=== PATIENT | male | born 1975 | race Two or more races ===

== ENCOUNTER → 2022-11-06 07:40 | Outpatient (BNVA) | payer SELFPAY | DX: Z02.79 Encounter for issue of other medical certificate (principal) ==

== ENCOUNTER → 2022-12-02 11:21 | Outpatient (BNVA) | payer OTHER, SELFPAY | PROVIDERS: Visit Provider Physician Assistant Medical | DX: Z77.098 Contact with and (suspected) exposure to other hazardous, chiefly nonmedicinal, chemicals (principal) | CPT/HCPCS: 99203 ==

== ENCOUNTER → 2022-12-08 10:04 | Outpatient (BNVA) | payer OTHER, SELFPAY | PROVIDERS: Visit Provider Physician Assistant Medical | DX: T59.891A Toxic effect of other specified gases, fumes and vapors, accidental (unintentional), initial encounter (principal); J68.4 Chronic respiratory conditions due to chemicals, gases, fumes and vapors; Y92.9 Unspecified place or not applicable | CPT/HCPCS: 99214 ==

== ENCOUNTER → 2023-01-08 13:10 | Outpatient (BNVA) | payer OTHER, SELFPAY | PROVIDERS: Visit Provider Physician Assistant Medical | DX: Z77.098 Contact with and (suspected) exposure to other hazardous, chiefly nonmedicinal, chemicals (principal) | CPT/HCPCS: 99213 ==

== ENCOUNTER → 2024-01-07 09:21 | Outpatient (BNVA) | payer OTHER, SELFPAY | PROVIDERS: Visit Provider Physician Assistant Medical | DX: S80.812A Abrasion, left lower leg, initial encounter (principal); S46.911A Strain of unspecified muscle, fascia and tendon at shoulder and upper arm level, right arm, initial encounter; W11.XXXA Fall on and from ladder, initial encounter | CPT/HCPCS: 99202 ==

== ENCOUNTER 2024-01-07 10:40 | Observation (INO) | payer OTHER, SELFPAY ==
[2024-01-07] VITALS (9 sets, daily range): BP systolic 112–135; BP diastolic 6–87; PULSE 57–80; RESP 15–20; TEMP 36.6–37.1; O2SAT 90–98; BMI 31.6
--- NOTE | ~2024-01-07 | XR_ITS ---
EXAMINATION: XR SHOULDER, RIGHT CLINICAL INFORMATION: Pain with injury COMPARISON: None available. TECHNIQUE: Three views of the right shoulder. FINDINGS: The bones and soft tissues are normal. No fracture. Glenohumeral and acromioclavicular alignment is anatomic with normal joint space. No abnormal soft tissue calcifications. XR/XR shoulder RT min 2V IMPRESSION: Normal right shoulder. Electronically signed by: Avni Verduzco MD 01/07/2024 02:00 PM EDT
--- NOTE | ~2024-01-07 | CT_ITS ---
EXAMINATION: CT LOWER EXTREMITY WITH CONTRAST, LEFT CLINICAL INFORMATION: Pain. Question compartment syndrome. COMPARISON: Left tibia and fibula radiographs done earlier the same day. TECHNIQUE: Contiguous axial CT images of the left lower extremity were obtained following the IV administration of 85 mL Omnipaque 350 contrast. Sagittal and coronal reformats were provided and reviewed. This CT examination was performed using dose optimization techniques as appropriate, variously including the following: *Automated exposure control *Adjustment of mA and/or kV according to patient size (this includes techniques or standardized protocols for targeted exams where dose is matched to indication/reason for exam; i.e. extremities or head) *Use of iterative reconstruction technique. DOSE: 269 mGy-cm FINDINGS: No acute fracture or dislocation. No joint space narrowing or marginal osteophytes. No concerning lytic or blastic osseous lesion. No talar osteochondral lesion. The ankle mortise is maintained. Along the anteromedial aspect of the proximal tibial diametaphysis there is a hyperdense, somewhat irregular complex fluid collection measuring approximately 3.3 x 4.9 x 8.4 cm, consistent with a hematoma. Adjacent soft tissue stranding extending both proximally and distally. No additional organized fluid collection. No peripherally enhancing fluid collection. The visualized vascular structures are patent and grossly unremarkable. No enhancing soft tissue mass. The visualized muscles and tendons are grossly intact, however, evaluation is limited on CT examination. CT/CT lower leg LT w IV con IMPRESSION: 1. Hyperdense, somewhat irregular fluid collection along the anteromedial aspect of the proximal tibial diametaphysis measuring up to 8.4 cm, consistent with a hematoma. Adjacent soft tissue stranding both proximally and distally. No additional organized fluid collection or abscess formation. 2. No acute osseous abnormality. Electronically signed by: Logan Thompson MD 01/07/2024 04:20 PM EDT
--- NOTE | ~2024-01-07 | CT_ITS ---
EXAM: Contrast-enhanced CT scan of the chest, abdomen, and pelvis. INDICATION: Fall with pain. COMPARISON: CT abdomen and pelvis June 07, 2009 TECHNIQUE: Multidetector helical imaging of the chest, abdomen, and pelvis was obtained from the thoracic inlet through the pubic symphysis following administration of 85 cc of Omnipaque 350 IV contrast. Coronal and sagittal reformatted images that were obtained were also reviewed. This CT examination was performed using dose optimization techniques as appropriate, variously including the following: *Automated exposure control *Adjustment of mA and/or kV according to patient size (this includes techniques or standardized protocols for targeted exams where dose is matched to indication/reason for exam; i.e. extremities or head) *Use of iterative reconstruction technique DLP: 987 mGy-cm FINDINGS: CHEST: Central airways are patent. Lungs are adequately aerated. There is mild dependent atelectasis present. There is no lobar consolidation. No pleural effusion or pneumothorax. No suspicious pulmonary nodules. The heart is normal in size. There is no pericardial effusion. No appreciable coronary artery calcifications. Normal caliber thoracic aorta. No gross mediastinal or hilar lymphadenopathy. No pathologically enlarged axillary lymph nodes. ABDOMEN/PELVIS: The liver is normal in size. There are numerous subcentimeter hypodense foci throughout the liver which are too small to accurately characterize but statistically tiny cysts. The gallbladder is normal in appearance. The pancreas, spleen and adrenal glands are unremarkable. Symmetrically enhancing kidneys without hydronephrosis. A few subcentimeter hypodense foci within the right kidney are too small to accurately characterize. Normal caliber loops of small and large bowel. Normal appendix. Normal caliber abdominal aorta demonstrating mild atherosclerotic disease. No retroperitoneal lymphadenopathy. The bladder is normal in appearance. The prostate gland is normal in size. No gross pelvic fluid. No inguinal lymphadenopathy. OSSEOUS STRUCTURES Minimal diffuse degenerative changes of the spine. CT/CT abdomen pelvis w IV con IMPRESSION: No CT evidence for acute abnormality within the chest, abdomen or pelvis. Electronically signed by: Jonah Nuñez MD 01/07/2024 03:00 PM EDT
--- NOTE | ~2024-01-07 | CT_ITS ---
EXAMINATION: CT HEAD WITHOUT CONTRAST CT CERVICAL SPINE WITHOUT CONTRAST CLINICAL INFORMATION: Fall 10-15 feet. Pain. COMPARISON: None available. TECHNIQUE: Contiguous axial imaging was performed from the skull base to vertex without intravenous administration of contrast. Contiguous axial imaging was performed from the upper chest through the skull base without intravenous administration of contrast. Coronal and sagittal reformats were obtained at the acquisition workstation. This CT examination was performed using dose optimization techniques as appropriate, variously including the following: *Automated exposure control. *Adjustment of mA and/or kV according to patient size (this includes techniques or standardized protocols for targeted exams where dose is matched to indication/reason for exam; i.e. extremities or head). *Use of iterative reconstruction technique. DLP: 1250 mGy-cm FINDINGS: Head: There is no evidence of acute intracranial hemorrhage or edematous territorial infarction. Owen-white matter differentiation is preserved. There is no abnormal attenuation within the brain parenchyma. The ventricles are normal in morphology and size. No evidence for obstructive hydrocephalus. No abnormal mass effect or midline shift. No extra-axial fluid collections. No acute soft tissue or osseous abnormalities. Mild mucosal thickening of the paranasal sinuses. The mastoid air cells and middle ear cavities are clear. Cervical Spine: The atlantooccipital and atlantoaxial articulations remain well aligned. Straightening of the normal cervical lordosis. Otherwise, there is anatomic alignment of the vertebral bodies and posterior elements. Congenital nonunion of the posterior arch of C1. No evidence of acute fracture or subluxation. The vertebral body heights are maintained. Moderate degenerative disc disease from C4-C6. Mild degenerative disc disease at all additional levels. Facet and uncovertebral joint arthropathy leads to osseous encroachment on the neural foramina from C3-C6. There is no prevertebral soft tissue swelling. The thyroid gland and remaining cervical soft tissues are within normal limits. The lung apices demonstrate no abnormalities. CT/CT cervical spine wo IV con IMPRESSION: 1. No evidence of acute intracranial hemorrhage or edematous territorial infarction. 2. No evidence of acute fracture or traumatic subluxation of the cervical spine. 3. Moderate multilevel degenerative spondyloarthropathy of the cervical spine. Electronically signed by: Petey Marcus DO 01/07/2024 02:51 PM EDT
--- NOTE | ~2024-01-07 | XR_ITS ---
EXAMINATION: XR SHOULDER, RIGHT CLINICAL INFORMATION: Pain with injury COMPARISON: None available. TECHNIQUE: Three views of the right shoulder. FINDINGS: The bones and soft tissues are normal. No fracture. Glenohumeral and acromioclavicular alignment is anatomic with normal joint space. No abnormal soft tissue calcifications. XR/XR tibia fibula LT 2V IMPRESSION: Normal right shoulder. Electronically signed by: Avni Verduzco MD 01/07/2024 02:00 PM EDT
--- NOTE | 2024-01-07 11:11 | ECG_ITS ---
Test Reason : chest pain, trauma Blood Pressure : / mmHG Vent. Rate : 064 BPM Atrial Rate : 064 BPM P-R Int : 136 ms QRS Dur : 084 ms QT Int : 406 ms P-R-T Axes : 053 012 004 degrees QTc Int : 418 ms Normal sinus rhythm Normal ECG When compared with ECG of 09-JUN-2007 11:31, No significant change was found Referred By: Candie Bedoya Electronically Signed By:BARRINGTON CHRISTENSEN
--- NOTE | 2024-01-07 11:13 | ED_ITS ---
HPI - General Adult General Chief complaint: Fall Stated complaint: l leg/chest/r shoulder inj- fell 15 ft Time Seen by Provider: 01/07/24 11:07 Source: patient Mode of arrival: ambulatory Limitations: no limitations History of Present Illness ED Provider: Candie Bedoya PA-C HPI narrative: Patient is a 48 year old assigned male at with no reported medical history presenting to the emergency department today with left lower leg and chest pain after a fall. Patient states that he was working on an HVAC unit on a roof at 0530 when he slipped on some ice and fell. Patient states that he fell at least 10 feet and maybe up to 15 feet. Patient states that he bumped the front portion of his left lower leg and that is where he is having the most pain. Patient states that he is also having some right shoulder pain. Patient denies any dizziness, lightheadedness, abdominal pain, nausea, vomiting, fever, chills, blurry vision, double vision, loss of vision, difficulty breathing, shortness of breath, back pain, night sweats, pain with urination, increased urinary frequency, increased urinary urgency, blood in his urine or stool, syncope or a near syncopal episode, bowel incontinence, bladder incontinence, or any other complaints at this time. Onset (ago): hour(s) Location: chest, left and lower extremity Relieving factors: none Exacerbating factors: none Associated symptoms: chest pain Treatments prior to arrival: none Related Data Allergies Allergy/AdvReac Type Severity Reaction Status Date / Time No Known Allergies Allergy Verified 01/07/24 10:56 Review of Systems 2 Constitutional: Constitutional: Reports no additional constitutional complaints, Denies chills, Denies fever(s) and Denies night sweats Eyes: Eyes: Reports no additional eye complaints, Denies blurry vision, Denies change in vision, Denies diplopia, Denies eye discharge, Denies loss of vision and Denies eye pain ENT: Denies dizziness Cardiovascular: Cardiovascular: Reports no additional cardiovascular complaints, Reports chest pain, Denies lightheadedness, Denies Loss of Consciousness and Denies dyspnea Respiratory: Respiratory: Reports no additional respiratory complaints and Denies dyspnea Gastrointestinal: Gastrointestinal: Reports no additional gastrointestinal complaints, Denies abdominal pain, Denies melena, Denies hematochezia, Denies change in bowel habits and Denies change in stool character Genitourinary: Genitourinary: Reports no additional male genitourinary complaints, Denies hematuria, Denies oliguria, Denies difficulty urinating, Denies dysuria, Denies urinary frequency, Denies urinary hesitancy, Denies urinary incontinence and Denies urinary urgency Musculoskeletal: Musculoskeletal: Reports no additional musculoskeletal complaints, Denies numbness and Denies tingling Comments: left lower leg pain right shoulder pain Neurologic: Denies dizziness, Denies loss of vision, Denies numbness and Denies tingling Psychiatric: Psychiatric: Reports no additional psychiatric complaints Endocrine: Endocrine: Reports no additional endocrine complaints Hematologic/Lymphatic: Hematologic/Lymphatic: Reports no additional hematologic/lymphatic complaints Allergic/Immunologic: Allergic/Immunologic: Reports no additional allergic/immunologic complaints PMFSH Past Medical History Attestation statement: The following information was validated with the patient. Source: old records reviewed and nursing notes reviewed Social History Social History Alcohol intake: current Alcohol intake frequency: holidays/special occasions only Smoked in Last 30 Days: No Use of substances other than those prescribed or required for medical reasons: No Advance Directives: No Advance Directives Information Provided: No Do you have a plan to hurt others: No Plan Physical Exam ED Vital Signs: Vital Signs - 24 hr 01/07/24 10:52 01/07/24 12:33 01/07/24 14:09 Temperature 97.9 F 98.7 F 98.7 F Pulse Rate 74 65 72 Respiratory Rate 16 16 16 Blood Pressure 135/87 128/81 126/83 Pulse Oximetry 98 98 97 Oxygen Delivery Method Room Air Room Air Room Air 01/07/24 15:58 01/07/24 16:00 Temperature 98.4 F Pulse Rate 80 Respiratory Rate 18 Blood Pressure 114/74 Pulse Oximetry 90 L 95 Oxygen Delivery Method Room Air Room Air BMI result Body Mass Index 31.6 Const General: cooperative, no acute distress, alert and awake Nutritional Appearance: well nourished Orientation/consciousness: patient oriented x3 Limitations: no limitations HENMT Head: Yes normal to inspection and Yes atraumatic Ears: hearing grossly normal bilaterally and external ears normal General nose exam: Normal external nose present, no nasal discharge noted and no epistaxis Face and sinus: Yes normal facial exam, No abrasion and No laceration Mouth: Normal oral and palatal mucosa present, no drooling and no muffled voice Eyes General: appearance normal, both eyes and all related structures Periorbital: periorbital findings normal Eyelids: Yes eyelids normal Conjunctivae: conjunctivae normal Pupils: Equal, round and reactive pupils present EOM: EOMs intact bilaterally Neck Neck: Yes normal visual inspection, Yes full ROM and Yes no lymphadenopathy Chest Chest palpation & inspection: normal inspection of the chest Resp Effort & Inspection: normal respiratory effort and able to speak in complete sentences GI Inspection: Yes normal to inspection Neuro General: patient oriented x3 and moves all extremities Cranial nerves: Yes Equal, round and reactive pupils present Cognition (Neuro): normal cognition Extrem Other: patient's left lower leg had some bruising present and pain with palpation to the posterior calf General: Yes full ROM and Yes capillary refill normal Upper/lower leg/hip images: 2 1. abrasion - no open areas or active bleeding Psych Appearance: grossly normal Mental Status: mental status grossly normal Affect: normal affect Attitude: cooperative Thought process: Normal thought process present Thought content: Normal thought content present Insight: Good insight present (Psych) Medications Administered Discontinued Medications Generic Name Dose Route Start Last Admin Trade Name Sreeq PRN Reason Stop Dose Admin Hydromorphone HCl 1 mg 01/07/24 13:59 01/07/24 14:04 Hydromorphone Hcl 1 Mg/Ml Syringe IVPUSH 01/07/24 14:00 1 mg ONCE ONE Administration Protocol Hydromorphone HCl 1.5 mg 01/07/24 14:59 01/07/24 15:05 Hydromorphone Hcl 2 Mg/Ml Vial IVPUSH 01/07/24 15:00 1.5 mg ONCE ONE Administration Protocol Iohexol 100 ml 01/07/24 12:16 01/07/24 12:17 Iohexol 350 Mg/Ml 100 Ml Infus..Btl IV 01/07/24 12:17 85 ml ONCE ONE Administration Iohexol 85 ml 01/07/24 14:49 01/07/24 14:49 Iohexol 350 Mg/Ml 75 Ml Infus..Btl IV 01/07/24 14:50 85 ml ONCE ONE Administration Morphine Sulfate 4 mg 01/07/24 13:08 01/07/24 13:13 Morphine Sulfate 4 Mg/Ml Cartridge IVPUSH 01/07/24 13:09 4 mg ONCE ONE Administration Protocol Ondansetron HCl 4 mg 01/07/24 13:08 01/07/24 13:13 Ondansetron Hcl 4 Mg/2 Ml Vial IVPUSH 01/07/24 13:09 4 mg ONCE ONE Administration Medical Decision Making Medical Decision Making [facility] Narrative: Patient is a 48 year old assigned male at with no reported medical history presenting to the emergency department today with left lower leg pain and chest pain after a fall. Patient's physical exam was as noted in the physical exam portion of this note. Patient's blood work was unremarkable. Patient's EKG was unremarkable. Patient's right shoulder and left tib-fib x-rays showed no acute process. Patient's CT head, c-spine, chest, and abdomen/pelvis showed no acute process. While the patient was in the department he began to experience worsening left lower leg pain and swelling. Upon re-evaluation the patient's left lower leg was more firm than previously with increased pain upon palpation, concerning for possible compartment syndrome. I consulted with my attending physician Dr. Rogers who recommended getting a CTA of the left lower leg and contacting vascular surgery. Dr. Berry with vascular surgery came and examined the patient. He recommended medical admission for continued observation and pain control. CTA of the left lower leg showed an 8.4cm fluid collection to the anteromedial aspect of the proximal tib consistent with a hematoma. Patient's left lower leg was elevated and wrapped in an JAYLEN wrap. I spoke with the hospitalist team who agreed to admission. I explained my physical exam findings as well as all test results to the patient. I answered all questions asked by the patient. Patient received multiple doses of IV pain medication which, upon re-evaluation, he stated it helped his symptoms some. Patient verbalized agreement and understanding with this treatment plan and admission. Differential Diagnosis Differential Diagnoses: The differential diagnosis associated with the presentation includes Fall Compartment syndrome Sternal fracture Tibia fracture Fibular fracture Admission/Observation Consideration of admission/observation: Escalation of care including admission/observation considered Patient admitted. Consult Healthcare Provider Management of the patient was discussed with: Hospitalist (agreed to admission as noted in the MDM Rationale portion of this note.) and Estimator Project Manager (spoke to the vascular surgeon as noted in the MDM Rationale portion of this note.) Lab Data [facility] Lab Attestation statement: I reviewed the patient's lab results. My interpretation of these results are in the MDM Rationale portion of this note. 01/07/24 11:34 01/07/24 11:34 Labs: Lab Results 01/07/24 Range/Units 11:34 WBC 11.4 H (4.8-10.8) X10*3/uL RBC 4.52 L (4.60-5.80) X10*6/uL Hgb 14.0 (14.0-18.0) g/dl Hct 41.9 L (42.0-52.0) % MCV 92.7 (80.0-98.0) fL MCH 31.0 (27.0-33.0) pg MCHC 33.4 (31.0-36.0) g/dl RDW 12.1 (11.0-16.0) % Plt Count 262 (160-400) X10*3/uL MPV 9.0 L (9.4-12.4) fL Immature Gran % (Auto) 0.4 (0.0-0.4) % Neut % (Auto) 77.7 H (45-73) % Lymph % (Auto) 15.2 L (20-40) % Aurora % (Auto) 5.9 (2-11) % Eos % (Auto) 0.5 (0-4) % Baso % (Auto) 0.3 (0-2) % Lymph # (Auto) 1.7 (1.2-4.9) X10*3/uL Aurora # (Auto) 0.7 (0.1-1.2) X10*3/uL Eos # (Auto) 0.1 (0.0-0.4) X10*3/uL Baso # (Auto) 0.0 (0.0-0.2) X10*3/uL Abs Immat Gran (auto) 0.05 H (0.00-0.03) X10*3/uL Absolute Neuts (auto) 8.8 H (2.0-8.3) x10*3/uL Absolute Nucleated RBC 0.000 (0.0-0.012) X10*3/uL Nucleated RBC % (auto) 0.0 (0.0-0.2) /100WBC PT 10.8 L (10.9-12.4) SEC INR 0.9 (0.9-1.1) APTT 30.6 (26.0-36.8) SEC Sodium 138 (135-145) mmol/L Potassium 4.9 (3.3-5.1) mmol/L Chloride 105 (96-108) mmol/L Carbon Dioxide 26 (22-29) mmol/L Anion Gap 12 (12-20) BUN 11 (9-16) mg/dL Creatinine 0.88 (0.5-1.4) mg/dL Estim Creat Clear Calc 103.6 Estimated GFR > 60 Random Glucose 112 (60-115) mg/dL Calcium 9.4 (8.4-10.2) mg/dL Magnesium 2.0 (1.6-2.6) mg/dL Total Bilirubin 0.5 (0.0-1.0) mg/dL AST 23 (5-37) U/L ALT 25 (0-40) U/L Alkaline Phosphatase 71 (39-117) U/L Total Creatine Kinase 376 H (38-174) U/L Troponin I High Sens < 2.7 (<3.5-35.0) ng/L Total Protein 7.4 (6.5-8.0) g/dL Albumin 4.2 (3.5-5.0) g/dL Independent Interpretation I performed an independent interpretation of an: EKG, Plain X-Ray and CT Scan Interpretation: My interpretation is in agreement with the radiologist's impression of these imaging studies. L EXAM: Contrast-enhanced CT scan of the chest, abdomen, and pelvis. INDICATION: Fall with pain. COMPARISON: CT abdomen and pelvis June 07, 2009 TECHNIQUE: Multidetector helical imaging of the chest, abdomen, and pelvis was obtained from the thoracic inlet through the pubic symphysis following administration of 85 cc of Omnipaque 350 IV contrast. Coronal and sagittal reformatted images that were obtained were also reviewed. This CT examination was performed using dose optimization techniques as appropriate, variously including the following: *Automated exposure control *Adjustment of mA and/or kV according to patient size (this includes techniques or standardized protocols for targeted exams where dose is matched to indication/reason for exam; i.e. extremities or head) *Use of iterative reconstruction technique DLP: 987 mGy-cm FINDINGS: CHEST: Central airways are patent. Lungs are adequately aerated. There is mild dependent atelectasis present. There is no lobar consolidation. No pleural effusion or pneumothorax. No suspicious pulmonary nodules. The heart is normal in size. There is no pericardial effusion. No appreciable coronary artery calcifications. Normal caliber thoracic aorta. No gross mediastinal or hilar lymphadenopathy. No pathologically enlarged axillary lymph nodes. ABDOMEN/PELVIS: The liver is normal in size. There are numerous subcentimeter hypodense foci throughout the liver which are too small to accurately characterize but statistically tiny cysts. The gallbladder is normal in appearance. The pancreas, spleen and adrenal glands are unremarkable. Symmetrically enhancing kidneys without hydronephrosis. A few subcentimeter hypodense foci within the right kidney are too small to accurately characterize. Normal caliber loops of small and large bowel. Normal appendix. Normal caliber abdominal aorta demonstrating mild atherosclerotic disease. No retroperitoneal lymphadenopathy. The bladder is normal in appearance. The prostate gland is normal in size. No gross pelvic fluid. No inguinal lymphadenopathy. OSSEOUS STRUCTURES Minimal diffuse degenerative changes of the spine. CT/CT chest w IV con IMPRESSION: No CT evidence for acute abnormality within the chest, abdomen or pelvis. Electronically signed by: Jonah Nuñez MD 01/07/2024 03:00 PM EDT Dictated By: Jonah Nuñez MD Signed By: Electronically signed by Jonah Nuñez MD 01/07/24 1500 EXAMINATION: CT HEAD WITHOUT CONTRAST CT CERVICAL SPINE WITHOUT CONTRAST CLINICAL INFORMATION: Fall 10-15 feet. Pain. COMPARISON: None available. TECHNIQUE: Contiguous axial imaging was performed from the skull base to vertex without intravenous administration of contrast. Contiguous axial imaging was performed from the upper chest through the skull base without intravenous administration of contrast. Coronal and sagittal reformats were obtained at the acquisition workstation. This CT examination was performed using dose optimization techniques as appropriate, variously including the following: *Automated exposure control. *Adjustment of mA and/or kV according to patient size (this includes techniques or standardized protocols for targeted exams where dose is matched to indication/reason for exam; i.e. extremities or head). *Use of iterative reconstruction technique. DLP: 1250 mGy-cm FINDINGS: Head: There is no evidence of acute intracranial hemorrhage or edematous territorial infarction. Owen-white matter differentiation is preserved. There is no abnormal attenuation within the brain parenchyma. The ventricles are normal in morphology and size. No evidence for obstructive hydrocephalus. No abnormal mass effect or midline shift. No extra-axial fluid collections. No acute soft tissue or osseous abnormalities. Mild mucosal thickening of the paranasal sinuses. The mastoid air cells and middle ear cavities are clear. Cervical Spine: The atlantooccipital and atlantoaxial articulations remain well aligned. Straightening of the normal cervical lordosis. Otherwise, there is anatomic alignment of the vertebral bodies and posterior elements. Congenital nonunion of the posterior arch of C1. No evidence of acute fracture or subluxation. The vertebral body heights are maintained. Moderate degenerative disc disease from C4-C6. Mild degenerative disc disease at all additional levels. Facet and uncovertebral joint arthropathy leads to osseous encroachment on the neural foramina from C3-C6. There is no prevertebral soft tissue swelling. The thyroid gland and remaining cervical soft tissues are within normal limits. The lung apices demonstrate no abnormalities. CT/CT head/brain wo IV con IMPRESSION: 1. No evidence of acute intracranial hemorrhage or edematous territorial infarction. 2. No evidence of acute fracture or traumatic subluxation of the cervical spine. 3. Moderate multilevel degenerative spondyloarthropathy of the cervical spine. Electronically signed by: Petey Marcus DO 01/07/2024 02:51 PM EDT Dictated By: Nic Marcus DO Signed By: Electronically signed by Nic Marcus DO 01/07/24 1451 EXAMINATIONS: XR SHOULDER, RIGHT XR TIBIA AND FIBULA, LEFT CLINICAL INFORMATION: Pain with injury COMPARISON: None available. TECHNIQUE: Three views of the right shoulder. 2 views of the right tibia and fibula. FINDINGS: The bones and soft tissues are normal. No fracture. Glenohumeral and acromioclavicular alignment is anatomic with normal joint space. No abnormal soft tissue calcifications. The tibia and fibula appear normal. The visualized portions of the ankle and knee joint are unremarkable. IMPRESSION: Normal right shoulder and right tibia and fibula. Electronically signed by: Avni Verduzco MD 01/07/2024 03:12 PM EDT RP EXAMINATION: CT LOWER EXTREMITY WITH CONTRAST, LEFT CLINICAL INFORMATION: Pain. Question compartment syndrome. COMPARISON: Left tibia and fibula radiographs done earlier the same day. TECHNIQUE: Contiguous axial CT images of the left lower extremity were obtained following the IV administration of 85 mL Omnipaque 350 contrast. Sagittal and coronal reformats were provided and reviewed. This CT examination was performed using dose optimization techniques as appropriate, variously including the following: *Automated exposure control *Adjustment of mA and/or kV according to patient size (this includes techniques or standardized protocols for targeted exams where dose is matched to indication/reason for exam; i.e. extremities or head) *Use of iterative reconstruction technique. DOSE: 269 mGy-cm FINDINGS: No acute fracture or dislocation. No joint space narrowing or marginal osteophytes. No concerning lytic or blastic osseous lesion. No talar osteochondral lesion. The ankle mortise is maintained. Along the anteromedial aspect of the proximal tibial diametaphysis there is a hyperdense, somewhat irregular complex fluid collection measuring approximately 3.3 x 4.9 x 8.4 cm, consistent with a hematoma. Adjacent soft tissue stranding extending both proximally and distally. No additional organized fluid collection. No peripherally enhancing fluid collection. The visualized vascular structures are patent and grossly unremarkable. No enhancing soft tissue mass. The visualized muscles and tendons are grossly intact, however, evaluation is limited on CT examination. CT/CT lower leg LT w IV con IMPRESSION: 1. Hyperdense, somewhat irregular fluid collection along the anteromedial aspect of the proximal tibial diametaphysis measuring up to 8.4 cm, consistent with a hematoma. Adjacent soft tissue stranding both proximally and distally. No additional organized fluid collection or abscess formation. 2. No acute osseous abnormality. Electronically signed by: Logan Thompson MD 01/07/2024 04:20 PM EDT RP Dictated By: Logan Thompson MD Signed By: Electronically signed by Logan Thompson MD 01/07/24 1620 Vent. Rate: 064 BPM Atrial Rate: 064 BPM P-R Int: 136 ms QRS Dur: 084 ms QT Int: 406 ms P-R-T Axes: 053 012 004 degrees QTc Int: 418 ms Normal sinus rhythm Normal ECG When compared with ECG of 09-JUN-2007 11:31, No significant change was found Referred By: Candie Bedoya Electronically Signed By:JOSE L CHRISTENSEN Dictated By: Jose L Christensen MD Signed By: Electronically signed by Jose L Christensen MD 01/07/24 7057 Radiology Impression Discussion of test interpretation with radiology: I have reviewed the radiologist's reading. Critical Care Time Critical Care Time Critical Care Time: Yes Total Critical Care Time: 46 Attestation: I spent 46 minutes of Critical Care Time with this patient. This does not include time spent on separately reported billable procedures. Discharge Plan Discharge Clinical Impression: Left leg pain Fall Qualifiers: Encounter type: initial encounter Qualified Code(s): W19.XXXA - Unspecified fall, initial encounter Patient Disposition: Admitted As Inpatient Print Language: English
[2024-01-07 11:37] LABS: MANUAL DIFF FLAG NO
[2024-01-07 11:39] LABS: Basophils Percent Auto 0.3 % (0-2); Eosinophils Absolute Auto 0.1 X10*3/uL (0.0-0.4); Eosinophils Percent Auto 0.5 % (0-4); Hematocrit 41.9 % (42.0-52.0); Imm Gran Abs Auto 0.05 X10*3/uL (0.00-0.03); Imm Gran Pct Auto 0.4 % (0.0-0.4); Lymphocytes Absolute Auto 1.7 X10*3/uL (1.2-4.9); Lymphocytes Percent Auto 15.2 % (20-40); Mean Corpuscular HGB Conc 33.4 g/dl (31.0-36.0); Mean Corpuscular Volume 92.7 fL (80.0-98.0); Monocytes Absolute Auto 0.7 X10*3/uL (0.1-1.2); Monocytes Percent Auto 5.9 % (2-11); Neutrophils Absolute Auto 8.8 x10*3/uL (2.0-8.3); Neutrophils Percent Auto 77.7 % (45-73); Platelet Count 262 X10*3/uL (160-400); Red Blood Count 4.52 X10*6/uL (4.60-5.80); Red Cell Distribution Width 12.1 % (11.0-16.0); White Blood Count 11.4 X10*3/uL (4.8-10.8)
[2024-01-07 11:49] LABS: INTERNATIONAL NORM RATIO 0.9 (0.9-1.1); Prothrombin Time 10.8 SEC (10.9-12.4)
[2024-01-07 11:51] LABS: Partial Thromboplastin Time 30.6 SEC (26.0-36.8)
[2024-01-07 11:54] LABS: Alanine Aminotransferase 25 U/L (0-40); Albumin Level 4.2 g/dL (3.5-5.0); Alkaline Phosphatase 71 U/L (39-117); Anion Gap 12 (12-20); Aspartate Amino Transferase 23 U/L (5-37); Bilirubin Total 0.5 mg/dL (0.0-1.0); Blood Urea Nitrogen 11 mg/dL (9-16); Calcium 9.4 mg/dL (8.4-10.2); Carbon Dioxide 26 mmol/L (22-29); Chloride 105 mmol/L (96-108); Creatinine Clr Calc Pharmacy 103.6; Estimated Glomerular Filt Rate > 60; Glucose Random 112 mg/dL (60-115); Potassium 4.9 mmol/L (3.3-5.1); Sodium 138 mmol/L (135-145); Total Protein 7.4 g/dL (6.5-8.0)
[2024-01-07 12:03] LABS: Troponin-I High Sensitivity < 2.7 ng/L (<3.5-35.0)
[2024-01-07] MEDS: iohexoL 350 MG/ML 100 ML INFUS..BTL IV (12:17)
--- NOTE | 2024-01-07 13:02 | PC.NURSE ---
Patient reports fell 15ft off a roof at 5:30am this morning, reports increasing left leg pain and swelling
[2024-01-07] MEDS: Morphine Sulfate 4 MG/ML CARTRIDGE IVPUSH (13:13)
[2024-01-07] MEDS: ondansetron HCL 4 MG/2 ML VIAL IVPUSH ×2 (13:13→17:12)
--- NOTE | 2024-01-07 13:16 | PC.NURSE ---
Patient reporting increasing left leg pain. Left leg with increased swelling noted. Provider aware and at bedside to assess. Medicated per mar
--- NOTE | 2024-01-07 13:53 | PC.NURSE ---
Patient reports no relief from morphine, PA aware
[2024-01-07] MEDS: HYDROmorphone HCl 1 MG/ML SYRINGE IVPUSH (14:04)
--- NOTE | 2024-01-07 14:08 | PC.NURSE ---
MD at bedside to assess. Patient reports increasing pain, leg leg with continued swelling. Calf firm and cooler to touch than right leg. Positive dorsalis pedis pulse via dopler. Able flex and dorsi flex foot. Kendrick wrap applied, elevated using 4 pillows
--- NOTE | 2024-01-07 14:40 | PC.NURSE ---
Vascular surgery at bedside to assess patient
[2024-01-07] MEDS: iohexoL 350 MG/ML 75 ML INFUS..BTL 85 ML IV (14:49)
--- NOTE | 2024-01-07 14:56 | P.CONGS_ITS ---
<Statement entered by Alan Berry MD - 01/07/24 15:58> I have seen and evaluated the patient and agree with history, findings, assessment and plan documented by Cami Jaimes PA-c. Will need observation for compartment syndrome. We will follow with you History of Present Illness Consult details Consult date: 01/07/24 Narrative: We are consulted on Shant today due to concerns of compartment syndrome of the left lower extremity. The patient presented to the ER approximately 7 hours after falling down a ladder approximately 15 ft around 0530 this morning. He did not hit his head and he did not lose consciousness. He arrived in the ER a couple of hours ago with complaints of left lower leg pain. The leg is extremely swollen and painful to palpation. There is a hematoma noted just below the tibial tuberosity medially appx [id number]. There is a small laceration over the tibia, minimal bleeding noted. The compartment is hard over the medially aspect, which is the most painful, according to the pt. He states he slid down the ladder and through 1 of the rungs and fell onto his back. He does not recall exactly how he hurt his leg while falling. He took Tylenol 500mg earlier today with little relief. He is able to move his foot and leg and has full feeling. He does endorse shoulder pain as well as sternal pain. He denies any shortness of breath or chest pain. He denies any numbness or tingling in his lower extremities. Review of Systems 2 Constitutional: Constitutional: Reports as per HPI Cardiovascular: Cardiovascular: Reports as per HPI Respiratory: Respiratory: Reports as per HPI Gastrointestinal: Gastrointestinal: Reports as per HPI Musculoskeletal: Comments: left lower extremity pain and bruising Integumentary/Breasts: Skin/Breast: Reports wounds Neurologic: Reports as per HPI [facility] Social History Social History (System 02/14/22 @ 08:57 by Chika Daniel) Alcohol intake: current Alcohol intake frequency: holidays/special occasions only Meds Allergies Allergy/AdvReac Type Severity Reaction Status Date / Time No Known Allergies Allergy Verified 01/07/24 10:56 Physical Exam 2 Vital Signs: Vital Signs: Last Vital Signs Temp 98.7 F 01/07/24 14:09 Pulse 72 01/07/24 14:09 Resp 16 01/07/24 14:09 BP 126/83 01/07/24 14:09 Pulse Ox 97 01/07/24 14:09 O2 Del Method Room Air 01/07/24 14:09 BMI result Body Mass Index 31.6 Skin: Other: Small open laceration to the mid-tibia. Extrem: Other: Left lower extremity: Positive DP/PT pulses. Foot and lower extremity warm to the touch. Patient has full sensation and motor. Posterolateral compartment still turgor noted, compartment not completely full. Anterior compartment very swollen and hematoma noted just below the tibial tuberosity medially. Results Labs 01/07/24 11:34 01/07/24 11:34 Labs: Abnormal lab results 01/07/24 Range/Units 11:34 WBC 11.4 H (4.8-10.8) X10*3/uL RBC 4.52 L (4.60-5.80) X10*6/uL Hct 41.9 L (42.0-52.0) % MPV 9.0 L (9.4-12.4) fL Neut % (Auto) 77.7 H (45-73) % Lymph % (Auto) 15.2 L (20-40) % Abs Immat Gran (auto) 0.05 H (0.00-0.03) X10*3/uL Absolute Neuts (auto) 8.8 H (2.0-8.3) x10*3/uL PT 10.8 L (10.9-12.4) SEC Short CBC 01/07/24 Range/Units 11:34 WBC 11.4 H (4.8-10.8) X10*3/uL Hgb 14.0 (14.0-18.0) g/dl Hct 41.9 L (42.0-52.0) % Plt Count 262 (160-400) X10*3/uL BMP 01/07/24 11:34 Sodium 138 Potassium 4.9 Chloride 105 Carbon Dioxide 26 BUN 11 Creatinine 0.88 Calcium 9.4 Liver Function 01/07/24 Range/Units 11:34 Total Bilirubin 0.5 (0.0-1.0) mg/dL AST 23 (5-37) U/L ALT 25 (0-40) U/L Alkaline Phosphatase 71 (39-117) U/L Albumin 4.2 (3.5-5.0) g/dL All other labs normal. Assessment and Plan (1) Fall: Qualifiers: Encounter type: initial encounter Qualified Code(s): W19.XXXA - Unspecified fall, initial encounter Status: Acute (2) Left leg pain: Status: Acute Plan Shant is a 48-year-old male patient presenting status post fall off a ladder approximately 0530 this morning. Has complaints left lower extremity swelling and significant pain. All compartments are not full at this point; the posterolateral compartment still has adequate turgor. We encourage continuing with the Kendrick bandage, elevation, and pain control. If the pain worsens and the compartments get larger/tighter, please do not hesitate to reach back out to us. We will continue to monitor. We recommend 24 hour observation. Thank you for allowing us to care of the patient. Please contact us if there are any questions or concerns. Total time managing care of this patient today: 30 minutes. Procedures Date of Service Date of Service: 01/07/24
[2024-01-07] MEDS: HYDROmorphone HCl 2 MG/ML VIAL 1.5 MG IVPUSH (15:05)
--- NOTE | 2024-01-07 15:27 | PM.EVENT ---
Event Note Date of Service: 01/07/24 Event Note: Full consult to follow - patient was seen in conjunction with my PA Cami. Was tiger text it at 02:03 regarding concerns left lower extremity compartment syndrome. Patient was seen by 230. At that time he had a palpable dorsalis pedis pulse with motor and sensation intact. Posterior compartment was soft. There was a hematoma on the right anterior pretibial surface. At the current time recommend continued conservative measures including compression elevation and Kendrick wrap. Will need overnight observation in hospital. Time Spent With Patient Time: Total time managing care of this patient today ____ minutes.
--- NOTE | 2024-01-07 16:55 | PM.IMHP ---
History of Present Illness Date of Service: 01/07/24 Attending physician on admission: [facility] Chief Complaint: left leg pain This is a 48-year-old male who presented to the emergency department after a fall. Patient states that he was climbing up the ladder and when he got to the top rung there was ice on it which caused him to slip. He denies any dizziness prior to his fall. Initially his left leg got stuck in between 2 rungs of the ladder and then he fell all the way to the ground. In the emergency department he had extensive imaging and no other injuries were sustained. He was noted to have significant swelling of his left leg. He underwent a CT scan of the left leg showing a large fluid collection consistent with a hematoma. He was seen in evaluation by vascular surgery who recommended to observe him overnight. No acute surgical intervention is warranted at this time. His leg was wrapped in Kendrick bandage in the emergency department in he reports improvement in the swelling since arriving to the emergency department. He is able to move his foot and leg and denies any sensation changes. Review of Systems Review of Systems: Yes all other systems are reviewed and are negative Constitutional: Constitutional: Denies chills and Denies fever(s) ENT: Denies dizziness Cardiovascular: Cardiovascular: Denies chest pain and Denies palpitations Respiratory: Respiratory: Denies cough Gastrointestinal: Gastrointestinal: Denies abdominal pain, Denies nausea and Denies vomiting Neurologic: Denies dizziness Endocrine: Endocrine: Denies palpitations [facility] Social History Alcohol intake: current Alcohol intake frequency: holidays/special occasions only Smoked in Last 30 Days: No Use of substances other than those prescribed or required for medical reasons: No Advance Directives: No Advance Directives Information Provided: No Do you have a plan to hurt others: No Plan Meds Allergies Allergy/AdvReac Type Severity Reaction Status Date / Time No Known Allergies Allergy Verified 01/07/24 10:56 Physical Exam Vital Signs and Narrative: Vital Signs: Last Vital Signs Temp 98.4 F 01/07/24 15:58 Pulse 80 01/07/24 15:58 Resp 18 01/07/24 15:58 BP 114/74 01/07/24 15:58 Pulse Ox 95 01/07/24 16:00 O2 Del Method Room Air 01/07/24 16:00 BMI result Body Mass Index 31.6 Const: General: cooperative, comfortable, no acute distress, alert and awake Nutritional Appearance: average body habitus Orientation/consciousness: patient oriented x3 Resp: Effort & Inspection: normal respiratory effort, able to speak in complete sentences, no respiratory distress and no use of accessory muscles Cardio: Rate: regular rate GI: Inspection: No distended Palpation (GI): Soft to palpation and nontender Neuro: General: patient oriented x3, moves all extremities and CN's II-XI intact bilaterally Extrem: Other: left leg wrapped in clean dry kendrick wrap; NVI - pedal pulses present, able to move left foot; calf soft Results Labs 01/07/24 11:34 01/07/24 11:34 Labs: Laboratory Results - last 24 hr 01/07/24 11:34 MCV 92.7 MCH 31.0 MCHC 33.4 RDW 12.1 Plt Count 262 MPV 9.0 L Immature Gran % (Auto) 0.4 Neut % (Auto) 77.7 H Lymph % (Auto) 15.2 L [place] % (Auto) 5.9 Eos % (Auto) 0.5 Baso % (Auto) 0.3 Lymph # (Auto) 1.7 [place] # (Auto) 0.7 Eos # (Auto) 0.1 Baso # (Auto) 0.0 Abs Immat Gran (auto) 0.05 H Absolute Neuts (auto) 8.8 H Absolute Nucleated RBC 0.000 Nucleated RBC % (auto) 0.0 PT 10.8 L INR 0.9 APTT 30.6 Anion Gap 12 Estim Creat Clear Calc 103.6 Estimated GFR > 60 Random Glucose 112 Calcium 9.4 Magnesium 2.0 Total Bilirubin 0.5 AST 23 ALT 25 Alkaline Phosphatase 71 Total Creatine Kinase 376 H Troponin I High Sens < 2.7 Total Protein 7.4 Albumin 4.2 Imaging Radiologist's Impressions: Impressions Chest CT 01/07/24 11:11 IMPRESSION: No CT evidence for acute abnormality within the chest, abdomen or pelvis. Electronically signed by: Jonah Nuñez MD 01/07/2024 03:[address] 01/07/24 11:11 IMPRESSION: 1. No evidence of acute intracranial hemorrhage or edematous territorial infarction. 2. No evidence of acute fracture or traumatic subluxation of the cervical spine. 3. Moderate multilevel degenerative spondyloarthropathy of the cervical spine. Electronically signed by: Petey Marcus DO 01/07/2024 02:51 PM EDT RP Shoulder X-Ray 01/07/24 11:11 IMPRESSION: Normal right shoulder. Electronically signed by: Avni Verduzco MD 01/07/2024 02:00 PM EDT RP Tibia/Fibula X-Ray 01/07/24 11:11 IMPRESSION: Normal right shoulder. Electronically signed by: Avni Verduzco MD 01/07/2024 02:00 PM EDT RP Cervical Spine CT 01/07/24 11:12 IMPRESSION: 1. No evidence of acute intracranial hemorrhage or edematous territorial infarction. 2. No evidence of acute fracture or traumatic subluxation of the cervical spine. 3. Moderate multilevel degenerative spondyloarthropathy of the cervical spine. Electronically signed by: Petey Marcus DO 01/07/2024 02:51 PM EDT RP Abdomen/Pelvis CT 01/07/24 11:41 IMPRESSION: No CT evidence for acute abnormality within the chest, abdomen or pelvis. Electronically signed by: Jonah Nuñez MD 01/07/2024 03:00 PM EDT RP Lower Extremity CT 01/07/24 14:46 IMPRESSION: 1. Hyperdense, somewhat irregular fluid collection along the anteromedial aspect of the proximal tibial diametaphysis measuring up to 8.4 cm, consistent with a hematoma. Adjacent soft tissue stranding both proximally and distally. No additional organized fluid collection or abscess formation. 2. No acute osseous abnormality. Electronically signed by: Logan Thompson MD 01/07/2024 04:20 PM EDT RP Assessment and Plan (1) Leg hematoma: Status: Acute Plan This is a 48-year-old male with no known past medical history who presents to the emergency department with left leg pain after he slipped and fell off the top of a ladder found to have left leg hematoma Left leg hematoma Secondary to trauma/fall from ladder CPK low (376), calf soft, no evidence compartment syndrome; swelling decreasing (as per pt report and ED nurse circumference measurements) Seen by vascular surgery, no indication for surgical intervention at this time Plan for q4h neurovascular checks to assess pulses and foot movement - if pt loses pulses or ability to move foot vascular surgery should be called directly keep leg elevated, continue kendrick wrap for compression trend CPK in am gentle IVF pain control follow H/H dvt ppx - no chemoprophylaxis due to hematoma attending - dr gardner Quality Stroke Does the patient have a stroke diagnosis?: No VTE Prior VTE?: No VTE Risk Level:: Medical - moderate - high VTE Device Contraindication: Treatment Not Indicated VTE Drug Contraindication: Treatment Not Indicated
[2024-01-07] MEDS: 0.9 % Sodium Chloride 1,000 ML 100 ML IVCONT (17:05)
--- NOTE | 2024-01-07 17:21 | PC.NURSE ---
Left leg with significant improvement in swelling. Leg circumference at 2pm measuring 17inches , circumference at 5:15pm measuring 14 inches . Patient reports improved pain and able to move legs without difficulty now. Able to flex and dorsi flex foot. Legs remains with JAYLEN wrap and elevated on 4 pillows
--- NOTE | 2024-01-07 17:38 | PHA.MEDREC ---
Addendum entered by Hung Zuleta RPh 01/07/24 19:03: MED REC CHECKED BY [facility] Original Note: Pharmacy Consult ? Medication Reconciliation Pharmacy has completed the medication reconciliation. Patient confirmed he is only taking Tylenol 500mg tabs 2 tabs as needed for pain and he took one this morning due to his accident but other then that he takes nothing else he states.
[2024-01-07 18:14] LABS: Hemoglobin 12.7 g/dl (14.0-18.0)
--- NOTE | 2024-01-07 19:42 | PC.NURSE ---
easured pts left lower extremity. It has increased from 14 inches to 16.5 inches. aware via tiger text
[2024-01-07] MEDS: Morphine Sulfate 4 MG/ML CARTRIDGE 2 MG IVPUSH (19:54)
--- NOTE | 2024-01-07 19:58 | PC.NURSE ---
MD Francois read tiger text about increased swelling from 14 inches to 16.5 inches. He responded for me to forward message to the surgeon Alan Berry, as i did.
[2024-01-07] MEDS: Melatonin 3 MG TABLET 6 MG PO (23:36)
[2024-01-08 03:06] VITALS: BP 114/60; PULSE 68; RESP 20; TEMP 36.2; O2SAT 96
[2024-01-08] MEDS: oxyCODONE HCl Immed Release 5 MG TABLET PO ×3 (04:46→14:26)
[2024-01-08 07:02] LABS: Hematocrit 36.4 % (42.0-52.0); Mean Corpuscular Hemoglobin 30.7 pg (27.0-33.0); Mean Corpuscular Volume 93.1 fL (80.0-98.0); Mean Platelet Volume 9.5 fL (9.4-12.4); Platelet Count 240 X10*3/uL (160-400); Red Blood Count 3.91 X10*6/uL (4.60-5.80); Red Cell Distribution Width 12.4 % (11.0-16.0); White Blood Count 7.4 X10*3/uL (4.8-10.8)
[2024-01-08 07:50] VITALS: BP 115/72; PULSE 67; RESP 18; TEMP 37; O2SAT 97
--- NOTE | 2024-01-08 09:24 | P.PNVS_ITS ---
Subjective Subjective Date of Service: 01/08/24 Patient reports: pain is less Interval history: Shant is doing well this morning. States he slept well. States he continues to have pain in the left lower extremity; however, states the pain is better than it was yesterday. He states he feels the leg is less swollen than yesterday. He was able to ambulate out of bed this morning to use the bathroom and had difficulty bearing weight on that leg but was able to. He denies any fevers, chills, or body aches. He denies any loss of feeling in the lower leg and pain is localized to the area of the hematoma. Physical Exam Vital Signs: Vital Signs: Last Vital Signs Temp 98.6 F 01/08/24 07:50 Pulse 67 01/08/24 07:50 Resp 18 01/08/24 07:50 BP 115/72 01/08/24 07:50 Pulse Ox 97 01/08/24 07:50 O2 Del Method Room Air 01/08/24 07:50 BMI result Body Mass Index 31.6 Const: General: comfortable and no acute distress Orientation/consciousness: patient oriented x3 Resp: Effort & Inspection: normal respiratory effort Auscultation: clear to auscultation bilaterally Cardio: Rate: regular rate Rhythm: regular rhythm Skin: Other: Left lower extremity: Found wrapped in Kendrick bandage. Compartments are less full, especially posterolateral and anteromedial. Hematoma continues to be painful to palpation, but not as bad as yesterday. Patient has full range of motion of the lower leg. Patient has full sensation and motor. Strong, palpable DP/PT pulses. Skin is warm dry intact. 4 x 4 noted over small laceration. Neuro: General: patient oriented x3 Progress Note: A&P Assessment and plan (1) Leg hematoma: Status: Acute Plan Patient was seen today as a follow-up to yesterday's consult for left lower extremity pain due to a fall off a ladder. All imaging was negative other than hematoma noted on CT. The patient states his leg feels smaller, and he continues with pain but is less than yesterday. The Kendrick wrap has continued to stay on and his leg has remained elevated. There is less swelling today in all the compartments feel much smaller than they did yesterday. He continues to have strong and palpable DP/PT pulses with full sensory and motor. He was able to ambulate out of bed this morning with slight weight-bearing and patient kadi rated it well. He requested if he could have crutches to assist him in walking, this may aid him in ambulation. He should continue to wrap the leg with an Kendrick bandage for the next couple of days and elevate. From a vascular standpoint there is no acute intervention required and will not need to see him in the outpatient setting. Thank you for allowing us to consult. If there are any questions or concerns please feel free to reach out to us. Time Spent With Patient Time: Total time managing care of this patient today __25__ minutes. Procedures Date of Service Date of Service: 01/08/24 Quality Stroke Does the patient have a stroke diagnosis?: No VTE Prior VTE?: No VTE Risk Level:: Medical - moderate - high VTE Device Contraindication: Treatment Not Indicated VTE Drug Contraindication: Treatment Not Indicated
--- NOTE | 2024-01-08 10:15 | MHC.CM.PN ---
[facility] DELIVERED PT LIVES WITH [facility]. INDEPENDENT AND EMPLOYED F/T. +HCP PCP DR. ANGIE GIORDANO DP: PT HAS BEEN MEDICALLY CLEARED FOR DC HOME, NO SERVICES. [facility] WILL TRANSPORT.
--- NOTE | 2024-01-08 10:50 | P.DS_ITS ---
DS: Providers Provider Date of Service: 01/08/24 Date of admission: 01/07/24 16:49 Date of discharge: 01/08/24 Primary care physician: Maria Del Rosario Fsoter MD Consults: 01/07/24 16:49 Consult to Vascular Surgery Routine Consulting Provider: [facility] Reason for consultation: left leg hematoma Has provider been notified: Yes Attending physician on discharge: Reagan Dejesus Discharging clinician: Preeti Kong DS: Diagnosis Discharge Diagnosis (1) Leg hematoma: Status: Acute DS: Summary Hospital Course Hospital Course: From H&P on the day of admission This is a 48-year-old male who presented to the emergency department after a fall. Patient states that he was climbing up the ladder and when he got to the top rung there was ice on it which caused him to slip. He denies any dizziness prior to his fall. Initially his left leg got stuck in between 2 rungs of the ladder and then he fell all the way to the ground. In the emergency department he had extensive imaging and no other injuries were sustained. He was noted to have significant swelling of his left leg. He underwent a CT scan of the left leg showing a large fluid collection consistent with a hematoma. He was seen in evaluation by vascular surgery who recommended to observe him overnight. No acute surgical intervention is warranted at this time. His leg was wrapped in Kendrick bandage in the emergency department in he reports improvement in the swelling since arriving to the emergency department. He is able to move his foot and leg and denies any sensation changes. Left leg hematoma. Secondary to fall from ladder. CPK has remained low. No evidence of compartment syndrome, patient was observed overnight, swelling has decreased. Neurovascular exam has remained intact with good sensation, strong pulses and full range of motion of the foot and ankle. Patient has persistent pain but has improved overnight. H/H has dropped slightly but well above the transfusion threshold and has remained stable overnight. Patient was seen by vascular surgery and no surgical intervention is warranted at this time. Patient is eager to return home. Patient had extensive imaging done in the emergency department and no other injuries were identified. Time Attestation Discharge Coordination Time (in mins): 35 Quality: Safe Use of Opioids Does Pt have an Active Cancer Diagnosis on the Problem List?: No Quality: Stroke Does the patient have a stroke diagnosis?: No Physical Exam Vital Signs: Vital Signs: Last Vital Signs Temp 98.6 F 01/08/24 07:50 Pulse 67 01/08/24 07:50 Resp 18 01/08/24 07:50 BP 115/72 01/08/24 07:50 Pulse Ox 97 01/08/24 07:50 O2 Del Method Room Air 01/08/24 07:50 BMI result Body Mass Index 31.6 Const: General: cooperative, comfortable, no acute distress, alert and awake Nutritional Appearance: average body habitus Orientation/consciousness: patient oriented x3 Resp: Effort & Inspection: normal respiratory effort, able to speak in complete sentences, no respiratory distress and no use of accessory muscles Cardio: Rate: regular rate GI: Inspection: No distended Palpation (GI): Soft to palpation and nontender Neuro: General: patient oriented x3, moves all extremities and CN's II-XI intact bilaterally Extrem: Other: NVI - pedal pulses present, able to move left foot; calf soft, swelling improving; small skin tear noted DS: Data Data Completed and Pending Labs on day of discharge: Laboratory Results - last 24 hr 01/07/24 01/07/24 01/08/24 11:34 18:06 05:29 WBC 11.4 H 7.4 RBC 4.52 L 3.91 L Hgb 14.0 12.7 L 12.0 L Hct 41.9 L 38.0 L 36.4 L MCV 92.7 93.1 MCH 31.0 30.7 MCHC 33.4 33.0 RDW 12.1 12.4 Plt Count 262 240 MPV 9.0 L 9.5 Immature Gran % (Auto) 0.4 Neut % (Auto) 77.7 H Lymph % (Auto) 15.2 L [place] % (Auto) 5.9 Eos % (Auto) 0.5 Baso % (Auto) 0.3 Lymph # (Auto) 1.7 [place] # (Auto) 0.7 Eos # (Auto) 0.1 Baso # (Auto) 0.0 Abs Immat Gran (auto) 0.05 H Absolute Neuts (auto) 8.8 H Absolute Nucleated RBC 0.000 0.000 Nucleated RBC % (auto) 0.0 0.0 PT 10.8 L INR 0.9 APTT 30.6 Sodium 138 Potassium 4.9 Chloride 105 Carbon Dioxide 26 Anion Gap 12 BUN 11 Creatinine 0.88 Estim Creat Clear Calc 103.6 Estimated GFR > 60 Random Glucose 112 Calcium 9.4 Magnesium 2.0 Total Bilirubin 0.5 AST 23 ALT 25 Alkaline Phosphatase 71 Total Creatine Kinase 376 H 278 H Troponin I High Sens < 2.7 Total Protein 7.4 Albumin 4.2 Discharge Plan Discharge Patient Disposition: Home, Self-Care Discharge Diagnosis: Left leg hematoma Referrals: Maria Del Rosario Foster MD [Primary Care Provider] - 1 Week Discharge Medications: New oxycodone 5 mg tablet 5 mg PO Q6H PRN (Reason: pain) Qty: 20 0RF Rx Instructions: Partial Fill upon patient request. Continued acetaminophen 500 mg Tablet 1,000 mg PO DAILY PRN (Reason: Pain) Discharge Orders: Discharge Order (Routine); Ordered 01/08/24 Ordered By: Preeti Kong Activity on Discharge: As tolerated Stand Alone Forms: Patient Portal Discharge page, Work/School Release Print Language: Amharic Other Ambulatory Orders: Complete Blood Count no Diff (Routine) Timeframe: 1 Week Facility: [facility] - Location: Laboratory Ordered By: Preeti Kong Care Plan Goals: See below Health Concerns: Recommend to continue wrapping left leg with Kendrick bandage for the next few days, keep leg elevated whenever possible Call to schedule follow-up appointment with PCP to follow blood numbers Return to the emergency department if swelling or pain increases or any numbness of tingling develops Plan of Treatment: see above Assessment: See discharge summary
[2024-01-08] MEDS: Calcium Carbonate 750 MG TAB.CHEW PO (14:26)
== END 2024-01-08 14:26 | disposition home or self-care (01) ==
LOC: HO.ED 15:43 → HO.EDOVER 16:59 → HO.S3 19:59
PROVIDERS: Physician Assistant Medical; Admitting Provider Physician Assistant Medical; Emergency Provider Emergency Medicine; PCP Internal Medicine; Visit Provider Physician Assistant Medical
DX: S89.82XA Other specified injuries of left lower leg, initial encounter (principal); W11.XXXA Fall on and from ladder, initial encounter; Y93.9 Activity, unspecified; Y92.9 Unspecified place or not applicable; Y99.9 Unspecified external cause status; R07.9 Chest pain, unspecified; M25.511 Pain in right shoulder
CPT/HCPCS: 36415; 70450; 71260; 72125; 73030; 73590; 73701; 74177; 80053; 82550; 83735; 84484; 85014; 85018; 85025; 85027; 85610; 85730; 93005; 96361; 96374; 96375; 96376; 99221; 99285; J1171; J2270; J2405; Q9967

== ENCOUNTER → 2024-01-07 11:11 | Outpatient (BNV) | payer OTHER, SELFPAY | PROVIDERS: Emergency Provider Emergency Medicine; PCP Internal Medicine; Visit Provider Surgery Vascular Surgery | DX: S80.12XA Contusion of left lower leg, initial encounter (principal) | CPT/HCPCS: 99222; 99231; 99499 ==

== ENCOUNTER → 2024-01-07 11:11 | Outpatient (BNV) | payer OTHER, SELFPAY | PROVIDERS: Emergency Provider Emergency Medicine; PCP Internal Medicine; Visit Provider Internal Medicine | DX: R07.9 Chest pain, unspecified (principal) | CPT/HCPCS: 93010 ==

== ENCOUNTER → 2024-01-07 16:49 | Outpatient (BNV) | payer OTHER, SELFPAY | PROVIDERS: Admitting Provider Physician Assistant Medical; Emergency Provider Emergency Medicine; PCP Internal Medicine; Visit Provider Physician Assistant Medical | DX: S80.12XA Contusion of left lower leg, initial encounter (principal); W11.XXXA Fall on and from ladder, initial encounter | CPT/HCPCS: 99223; 99239 ==

== ENCOUNTER → 2024-01-13 10:02 | Outpatient (BNVA) | payer OTHER, SELFPAY | PROVIDERS: PCP Internal Medicine; Visit Provider Physician Assistant | DX: S80.812A Abrasion, left lower leg, initial encounter (principal); S46.911A Strain of unspecified muscle, fascia and tendon at shoulder and upper arm level, right arm, initial encounter; W11.XXXA Fall on and from ladder, initial encounter | CPT/HCPCS: 99214 ==

== ENCOUNTER → 2024-01-22 10:04 | Outpatient (BNVA) | payer OTHER, SELFPAY | PROVIDERS: PCP Internal Medicine; Visit Provider Physician Assistant | DX: S80.12XD Contusion of left lower leg, subsequent encounter (principal); W11.XXXD Fall on and from ladder, subsequent encounter | CPT/HCPCS: 99213 ==

== ENCOUNTER → 2024-02-05 10:07 | Outpatient (BNVA) | payer OTHER, SELFPAY | PROVIDERS: PCP Internal Medicine; Visit Provider Registered Nurse | DX: M79.89 Other specified soft tissue disorders (principal); M25.472 Effusion, left ankle; R20.0 Anesthesia of skin; M54.50 Low back pain, unspecified | CPT/HCPCS: 99213 ==

== ENCOUNTER 2024-02-09 10:07 | Outpatient (AMB) | payer OTHER, SELFPAY ==
--- NOTE | 2024-02-09 10:08 | A.OFFVIS_ITS ---
Vital Signs 02/09/24 10:18 Height 5 ft 5 in Weight 201 lb BMI 33.4 BP 143/90 H Blood Pressure Location Rt brachial Position Sitting Pulse 71 Intake Visit Reasons: LLE hematoma Intake Note: Patient referred after ER visit for hematoma on Lt lower leg after a 12-15 ft ladder. Patient c/o: painful, numbness mid gregorio area, swelling. Absorption Operator Required: No Accompanied by: Self / Same As Patient Allergies No Known Allergies Allergy (Verified 02/09/24 10:15) HPI Comments Details: Patient presents here for evaluation of a left lower extremity hematoma. He sustained a fall approximately 1 month ago from a ladder and fell a distance of roughly 12 ft. He developed left lower extremity blunt trauma with a significant ecchymosis of the left leg and calf. He had a workup in the ER which demonstrated no other pathology. He presents here for left leg evaluation because of persistent hematoma. His extremities otherwise grossly intact though he claims to have some numbness along the anterolateral aspect of the leg. He is is using crutches because of the marked persistent edema of the left leg. Chart was reviewed and patient evaluate [facility] Social History Alcohol intake: current Alcohol intake frequency: holidays/special occasions only Patient Tobacco Use Status: Never used Tobacco service: No Physical Exam Vital Signs: Last Vital Signs Pulse 71 02/09/24 10:18 BP 143/90 H 02/09/24 10:18 BMI result Body Mass Index 33.4 Extrem Other: Left lower extremity demonstrates resolving ecchymosis involving the anterolateral anteromedial left calf. The ankle is grossly neurovascularly intact. There is moderate edema which he says is slowly but steadily improving. There is a moderately sized hematoma of the mid anterior right muscle compartment but the extremities otherwise grossly neurovascularly intact. Patient has a small abrasion of the distal anterior lateral left leg but no evidence of any cellulitis or infection or abscess. Assessment & Plan Assessment & Plan (1) Leg hematoma: Code(s): S80.10XA - Contusion of unspecified lower leg, initial encounter Category: Surgical (2) Fall: Code(s): W19.XXXA - Unspecified fall, initial encounter Category: Surgical Qualifiers: Encounter type: initial encounter Qualified Code(s): W19.XXXA - Unspecified fall, initial encounter Plan Current plan is continue conservative therapy. Patient was encouraged to elevate his extremity whenever he is sedentary and slowly but steadily increasing his activity levels. No hematoma drainage is warranted at this time. Patient was see me in few weeks time for follow-up or p.r.n.. Coding Level of Care Code New Pt Level 4 (82734) Diagnoses Leg hematoma S80.10XA Fall, initial encounter W19.XXXA Encounter type: initial encounter
[2024-02-09 10:18] VITALS: BP 143/90; PULSE 71; BMI 33.4
== END 2024-02-09 10:25 | disposition home or self-care (01) ==
PROVIDERS: PCP Internal Medicine; Visit Provider Surgery
DX: S80.10XA Contusion of unspecified lower leg, initial encounter (principal); W19.XXXA Unspecified fall, initial encounter
CPT/HCPCS: 99204

== ENCOUNTER → 2024-02-09 10:07 | Outpatient (BNVA) | payer OTHER, SELFPAY | PROVIDERS: PCP Internal Medicine; Visit Provider Surgery | DX: S80.12XA Contusion of left lower leg, initial encounter (principal) | CPT/HCPCS: 99202 ==

== ENCOUNTER → 2024-02-17 10:05 | Outpatient (BNVA) | payer OTHER, SELFPAY | PROVIDERS: PCP Internal Medicine; Visit Provider Physician Assistant Medical | DX: M54.50 Low back pain, unspecified (principal); M79.89 Other specified soft tissue disorders; R20.0 Anesthesia of skin; Z91.81 History of falling | CPT/HCPCS: 93971; 99215 ==

== ENCOUNTER 2024-02-22 10:36 | Outpatient (AMB) | payer OTHER, SELFPAY ==
--- NOTE | 2024-02-22 10:37 | MHC.OFFVIS ---
Vital Signs 02/22/24 10:43 Height 5 ft 5 in Weight 197 lb BMI 32.8 BP 158/91 H Blood Pressure Location Rt brachial Position Sitting Pulse 65 Intake Visit Reasons: 2 week follow up LLE hematoma Intake Note: Patient here for 2wk follow up hematoma on Lt lower leg. Reports improvement since last visit. Patient c/o: no concerns. Accompanied by: Self / Same As Patient Allergies No Known Allergies Allergy (Verified 02/22/24 10:42) HPI Comments Details: Patient presents for follow-up status post his left calf hematoma. He has had marked improvement of the symptoms. The swelling is less. He is able to stand for longer periods of time. He does have some numbness along his left anterior lateral gregorio. He is able to ambulate with no difficulties. [facility], [facility] Social History Alcohol intake: current Alcohol intake frequency: holidays/special occasions only Patient Tobacco Use Status: Never used Tobacco service: No Physical Exam Vital Signs: Last Vital Signs Pulse 65 02/22/24 10:43 BP 158/91 H 02/22/24 10:43 BMI result Body Mass Index 32.8 Extrem Other: Left lower extremity demonstrates marked decrease in hematoma. There is also significant decrease in the ankle edema. No evidence of any ecchymosis. Ankle has normal movement. Assessment & Plan Assessment & Plan (1) Leg hematoma: Code(s): S80.10XA - Contusion of unspecified lower leg, initial encounter Category: Surgical (2) Fall: Code(s): W19.XXXA - Unspecified fall, initial encounter Category: Surgical Qualifiers: Encounter type: initial encounter Qualified Code(s): W19.XXXA - Unspecified fall, initial encounter Plan Patient would like to continue his light duty activities of work for next few weeks time. Note will be provided for this. He has also been recommended to avoid prolonged standing. Regarding the numbness, only time will tell if this will improve significantly or not. This could take anywhere from 6 months to a year. Patient understands. All questions answered. He will otherwise follow-up p.r.n.. Coding Level of Care Code Est Pt Level 4 (32459) Diagnoses Leg hematoma S80.10XA Fall, initial encounter W19.XXXA Encounter type: initial encounter
[2024-02-22 10:43] VITALS: BP 158/91; PULSE 65; BMI 32.8
== END 2024-02-22 10:52 | disposition home or self-care (01) ==
PROVIDERS: PCP Internal Medicine; Visit Provider Surgery
DX: S80.10XA Contusion of unspecified lower leg, initial encounter (principal); W19.XXXA Unspecified fall, initial encounter
CPT/HCPCS: 99214

== ENCOUNTER → 2024-02-22 10:36 | Outpatient (BNVA) | payer OTHER, SELFPAY | PROVIDERS: PCP Internal Medicine; Visit Provider Surgery | DX: S80.12XD Contusion of left lower leg, subsequent encounter (principal); W19.XXXD Unspecified fall, subsequent encounter | CPT/HCPCS: 99212 ==

== ENCOUNTER 2024-03-04 14:56 | Outpatient (AMB) | payer OTHER, SELFPAY ==
--- NOTE | 2024-03-04 15:04 | A.OFFPC_ITS ---
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 Intake Note: patient here for new patient visit c/o shoulder, hip and lower back pain [employer]otive T[employer] Tester Required: No Allergies No Known Allergies Allergy (Verified 03/04/24 15:20) Medication List - Last Reconciled 03/04/24 by Marky Siu CNP acetaminophen 1,000 mg PO DAILY PRN gabapentin 100 mg PO BEDTIME 1 week ibuprofen 800 mg PO TID Tobacco use date assessed: 03/04/24 Dental Screening Dental Screen Date: 03/04/24 Did you have a dental visit in the last 12 months?: Yes Did you have a dental problem in the last 6 months where you did not have access to dental care?: No Was dental information given to patient?: Patient has dentist HPI HPI Comments History of Present Illness Details New patient Prior PCP? - [facility], Dr. Foster Last office visit/CPE - 5 years ago Last lab work - Recently at [facility] [place] Acute issue(s) - Left lower leg pain and numbness and i ntermittent mild pain. He was followed by [facility] [place] general surgery - He is on Acetaminophen 1000 mg daily P RN, Gabapentin 100 mg daily at bedtime, and Ibuprofen 800 mg TID Past Medical History - None Surgical History - None Family History - Dad: Alcohol abuse, diabetes, leukemi a Social History - Nonsmoker. Does not drink alcohol. Den ies recreational drug use - He has not been making healthy dietary choices. He does not exercise. He generally sleeps well Health maintenance - Last eye exam was 2-3 years ago. He becker s an appointment scheduled for an eye exam - Last dental visit was 2 moths ago. He sees his dentist every 3 months for de ntal cleaning - Last tetanus vaccine unknown. 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 1. Little interest or pleasure in doing things: not at all 2. Feeling down, depressed, or hopeless: not at all 3. Trouble falling or staying asleep, or sleeping too much: not at all 4. Feeling tired or having little energy: not at all 5. Poor appetite or overeating: not at all 6. Feeling bad about yourself - or that you are a failure or have let yourself or your family down: not at all 7. Trouble concentrating on things, such as reading the newspaper or watching television: not at all 8. Moving or speaking so slowly that other people could have noticed. Or the opposite - being so fidgety or restless that you have been moving around a lot more than usual: not at all 9. Thoughts that you would be better off or of hurting yourself in some way: not at all Total score: 0 Depression Screening Interpretation: Negative Depression Screening Done: Yes 21312 - PHQ-9 Billing: Yes Source: Developed by Drs. Remberto Novoa, Sugey Arroyo, Silverio Abdalla and colleagues, with an educational sylvia from [employer] ([employer]). Thrive Questionnaire Date Thrive assessed: 03/04/24 I am a: Patient What is your living situation today?: I have a steady place to live Within the past 12 months, did the food you bought not last and you didn't have the money to get more?: Never true Within the past 12 months, did you worry whether your food would run out before you got money to buy more?: Never true Do you have trouble paying for medicines?: No Do you have trouble getting transportation to medical appointments?: No Do you have trouble paying your heating and electricity bill?: No Do you have trouble taking care of your child, family member or friend?: No Do you have trouble with day-to-day activities such as bathing, preparing meals, shopping, managing finances, etc.?: No Are you currently unemployed and looking for a job?: No Are you interested in more education?: No Please select the resources that you would like help with: None Currently or been in a relationship where the following occur: No concerns reported THRIVE Score: 0 AUDIT C Alcohol Use Questionnaire (AUDIT-C) 1. How often do you have a drink containing alcohol?: Never Total Score: 0 Score Reviewed/Action Taken: Yes SHEEBA-7 AMB Questionnaire SHEEBA-7 Date SHEEBA - 7 assessed: 03/04/24 Feeling nervous, anxious, or on edge: 0 = Not at all Not being able to stop or control worryin = Not at all Worrying too much about different things: 0 = Not at all Trouble relaxin = Not at all Being so restless that it is hard to sit still: 0 = Not at all Becoming easily annoyed or irritable: 0 = Not at all Feeling afraid as if something awful might happen: 0 = Not at all Total SHEEBA-7 score (0-4 normal; 5-9 mild; 10-14 moderate; 15-21 severe): 0 Source: Developed by Drs. Remberto Novoa, Sugey Arroyo, Silverio Abdalla and colleagues, with an educational sylvia from [employer] ([employer]). SHEEBA-7 Assessment Billing SHEEBA-7 Assessment Tool: SHEEBA-7 Assessment 28399 Review of Systems Const Details: Denies chills, Denies fatigue, Denies fever(s), Denies headache(s) and Denies weakness HEENT Denies change in vision, Denies dizziness, Denies headache(s), Denies hearing loss, Denies nasal congestion, Denies sinus pain, Denies sinus pressure and Denies sore throat Card Denies chest pain, Denies lightheadedness, Denies dyspnea and Denies other (palpitations) Resp Denies cough, Denies dyspnea and Denies wheezing GI Denies abdominal pain, Denies melena, Denies hematochezia, Denies change in bowel habits, Denies dyspepsia and Denies nausea Denies hematuria and Denies dysuria Musc Reports left lower leg pain and numbness and intermittent mild pain, Denies abnormal gait, Denies arthralgias, and Denies tingling Skin/Breast Denies rash, Denies unusual bruising and Denies wounds Neuro Denies abnormal gait, Denies dizziness, Denies headache(s), Denies memory loss, Denies numbness, Denies Sensory deficit (Neuro), Denies tingling and Denies weakness Psych Denies anxiety, Denies depression and Denies memory loss Endo Denies cold intolerance, Denies fatigue, Denies heat intolerance, Denies polydipsia and Denies polyuria Doug/Lymph Denies easy bleeding and Denies easy bruising Aller/Immun Denies wheezing Physical exam (Primary Care) Vital Signs: Last Vital Signs Temp 97.9 F 03/04/24 15:11 Pulse 61 03/04/24 15:11 Resp 16 03/04/24 15:11 BP 124/76 03/04/24 15:11 Pulse Ox 98 03/04/24 15:11 Oxygen Delivery Method Room Air 03/04/24 15:11 BMI result Body Mass Index 33.2 Tobacco/Smoking Status: Tobacco use Status Tobacco use date assessed 03/04/24 03/04/24 15:18 Patient Tobacco Use Status Never used Tobacco 03/04/24 15:07 e-Cigarette/Vaping Use Never Used 03/04/24 15:18 PHQ-9: PHQ-9 Score PHQ-9: Total score 0 03/04/24 15:18 Depression Screening Interpretation: Negative Thrive Assessment: Date of Thrive Assessment Date Thrive assessed 03/04/24 03/04/24 15:18 Currently or been in a relationship where the following occur: No concerns reported Const Other: General: no acute distress, well developed, alert and awake Nutritional Appearance: well nourished Orientation/consciousness: patient oriented x3 HENMT Head: Yes normocephalic and Yes atraumatic Ears: hearing grossly normal bilaterally and TM's normal bilaterally General nose exam: Normal external nose present and Normal nares present Mouth: Normal oral and palatal mucosa present and moist mucous membranes Teeth and gingiva: dentition normal Throat: Yes oropharynx normal Eyes Pupils: Equal, round and reactive pupils present and Pupil accommodation reflex normal EOM: EOMs intact bilaterally Neck Neck: Yes normal visual inspection, Yes no lymphadenopathy and Yes trachea midline Thyroid: Thyroid normal Carotids: no bruits Lymphatic: no lymphadenopathy noted Chest Chest palpation & inspection: normal inspection of the chest Resp Effort & Inspection: normal respiratory effort Auscultation: clear to auscultation bilaterally Cardio Rate: regular rate Rhythm: regular rhythm Heart sounds: S1 normal heart sound present, S2 normal heart sound present, no gallops, no murmurs and no rubs Bruits: no abdominal aortic bruits and no carotid bruits GI Palpation (GI): No Abdominal aortic bruit present, Soft to palpation, nontender, No hepatosplenomegaly present and No Rebound tenderness present Auscultation: normal bowel sounds General: Yes no CVA tenderness Back/Spine/Pelvis Back: no CVA tenderness Cervical Spine: cervical ROM normal and No Cervical spine tenderness Thoracic/Lumbar Spine: thoraco-lumbar ROM normal, No pain with thoraco-lumbar ROM, No thoracic spinal tenderness and No lumbar spinal tenderness Skin General: warm and dry. Normal skin color. Normal skin turgor Lesions: no lesions Rashes: no rashes Trauma: no lacerations or abrasions Wounds: no wounds Nails: normal Neuro General: patient oriented x3, gait normal and CN's II-XI intact bilaterally Cranial nerves: Yes Equal, round and reactive pupils present Cognition (Neuro): normal cognition Gait exam (Neuro): Normal gait present Motor exam (neuro): 5/5 motor strength present throughout Sensory Exam: No Sensory deficit (Neuro) Deep tendon reflexes (DTR's): Right patellar reflex intensity grade: 2+ and Left patellar reflex intensity grade: 2+ Extrem General: Yes normal to inspection, and No calf tenderness. Moderate swelling to the left leg, below the-knee to ankle; left upper gregorio firm to palpation. No wound, erythema, or overt infection Psych Appearance: grossly normal Affect: normal affect Attitude: cooperative Thought process: Normal thought process present Coding Level of Care Code New Pt Prev Care 40-64y(95266) Diagnoses Normal physical examination, routine Z00.00 Left leg swelling M79.89 Obesity (BMI 30-39.9) E66.9 Laboratory tests ordered as part of a complete physical exam (CPE) Z00.00 Additional Codes SHEEBA-7 Assessment Billing - SHEEBA-7 Assessment Tool: SHEEBA-7 Assessment 18516 ([id number]) PHQ-9 - 71772 - PHQ-9 Billing: Yes ([id number]) Assessment & Plan Assessment & Plan (1) Normal physical examination, routine: Code(s): Z00.00 - Encounter for general adult medical examination without abnormal findings Category: Medical Plan: No significant physical limitations noted. Advised to get lab work done and fol low-up for telehealth visit in 2-3 weeks for labs review or sooner with symptoms or concerns. Verbalized understanding and agreed with the plan. (2) Left leg swelling: Code(s): M79.89 - Other specified soft tissue disorders Category: Medical Plan: Moderate swelling to the left leg, below the-knee to ankle; left upper gregorio firm to palpation. No wound, erythema, or overt infection. Continue current treatment regimen. RICE of the left leg encouraged. Follow-up with worsening or new symptoms. Verbalized understanding and agreed with the plan. (3) Obesity (BMI 30-39.9): Code(s): E66.9 - Obesity, unspecified Category: Medical Plan: He currently weighs 199 lb, BMI is 33.2. Declines dietitian or weight management referral and notes he will continue to make healthy dietary changes and start exercising routinely. Healthy diet and routine exercise encouraged. Will referred to dietitian or weight management as needed. Verbalized understanding and agreed with the plan. (4) Laboratory tests ordered as part of a complete physical exam (CPE): Code(s): Z00.00 - Encounter for general adult medical examination without abnormal findings Category: Medical Plan: Fasting labs ordered as part of a complete physical exam. Advised to fast for at least 10 hours before getting labs drawn. May drink water Verbalized understanding and agreed with treatment plan. Orders: Orders Complete Blood Count Auto Diff Today Z00.00 - Encounter for general adult medical examination without abnormal findings Lipid Panel Today Z00.00 - Encounter for general adult medical examination without abnormal findings UA CC w/rflx Micro + Cult Today Z00.00 - Encounter for general adult medical examination without abnormal findings PSA, Ultra Sensitive Today Z00.00 - Encounter for general adult medical examination without abnormal findings TSH reflex Free T4 Today Z00.00 - Encounter for general adult medical examination without abnormal findings Microalbumin, Random (w Creat) Today Z00.00 - Encounter for general adult medical examination without abnormal findings
[2024-03-04 15:11] VITALS: BP 124/76; PULSE 61; RESP 16; TEMP 36.6; O2SAT 98; BMI 33.2
== END 2024-03-04 15:43 | disposition home or self-care (01) ==
PROVIDERS: PCP Internal Medicine; Visit Provider Nurse Practitioner Family
DX: Z00.00 Encounter for general adult medical examination without abnormal findings (principal); M79.89 Other specified soft tissue disorders; E66.9 Obesity, unspecified; Z68.33 Body mass index [BMI] 33.0-33.9, adult

== ENCOUNTER → 2024-03-04 14:56 | Outpatient (BNVA) | payer OTHER, SELFPAY | PROVIDERS: PCP Internal Medicine; Visit Provider Nurse Practitioner Family | DX: Z00.00 Encounter for general adult medical examination without abnormal findings (principal); M79.89 Other specified soft tissue disorders; E66.9 Obesity, unspecified; Z68.33 Body mass index [BMI] 33.0-33.9, adult | CPT/HCPCS: 96127 ==

== ENCOUNTER 2024-03-07 10:29 | Outpatient (REF) | payer OTHER, SELFPAY ==
[2024-03-07 12:11] LABS: Appearance Urine Clear; Color Urine Yellow; Glucose Urine UA Negative (Negative); Leukocyte Esterase Urine Negative (Negative); Nitrite Urine Negative (Negative); PH 5.5 (5.0-9.0); Specific Gravity - Urine 1.015 (1.005-1.025); Urine Blood Negative (Negative); Urine Ketones Negative (Negative); Urine Protein Negative (Neg-Trace)
[2024-03-07 12:25] LABS: MANUAL DIFF FLAG NO
[2024-03-07 12:30] LABS: Basophils Percent Auto 0.5 % (0-2); Eosinophils Absolute Auto 0.2 X10*3/uL (0.0-0.4); Eosinophils Percent Auto 3.5 % (0-4); Hematocrit 41.7 % (42.0-52.0); Hemoglobin 13.8 g/dl (14.0-18.0); Imm Gran Abs Auto 0.01 X10*3/uL (0.00-0.03); Imm Gran Pct Auto 0.2 % (0.0-0.4); Lymphocytes Absolute Auto 2.4 X10*3/uL (1.2-4.9); Lymphocytes Percent Auto 41.9 % (20-40); Mean Corpuscular HGB Conc 33.1 g/dl (31.0-36.0); Mean Corpuscular Hemoglobin 30.5 pg (27.0-33.0); Mean Corpuscular Volume 92.3 fL (80.0-98.0); Mean Platelet Volume 9.3 fL (9.4-12.4); Monocytes Absolute Auto 0.4 X10*3/uL (0.1-1.2); Monocytes Percent Auto 7.4 % (2-11); Neutrophils Absolute Auto 2.6 x10*3/uL (2.0-8.3); Neutrophils Percent Auto 46.5 % (45-73); Platelet Count 264 X10*3/uL (160-400); Red Blood Count 4.52 X10*6/uL (4.60-5.80); Red Cell Distribution Width 12.2 % (11.0-16.0); White Blood Count 5.7 X10*3/uL (4.8-10.8)
[2024-03-07 12:46] LABS: Cholesterol 211 mg/dL (<200); HDL Cholesterol 45 mg/dL (>40); LDL Cholesterol Calculated 140 mg/dL (<100); Triglycerides 130 mg/dL (<150)
[2024-03-07 13:03] LABS: TSH reflex Free T4 1.55 uIU/mL (0.32-4.0)
[2024-03-07 13:12] LABS: Creatinine Urine 112.35 mg/dL; Microalbumin Urine < 5.0 mg/L
[2024-03-12 14:08] LABS: PSA, Ultra Sensitive 0.39 ng/mL
== END 2024-03-07 10:30 | disposition home or self-care (01) ==
LOC: HO.WFDLDS 10:29
PROVIDERS: Referring Provider Physician Assistant Medical; Visit Provider Nurse Practitioner Family
DX: Z00.00 Encounter for general adult medical examination without abnormal findings (principal); Z12.5 Encounter for screening for malignant neoplasm of prostate
CPT/HCPCS: 36415; 80061; 81003; 82043; 82570; 84153; 84443; 85025

== ENCOUNTER → 2024-03-09 10:00 | Outpatient (BNVA) | payer OTHER, SELFPAY | PROVIDERS: PCP Nurse Practitioner Family; Visit Provider Physician Assistant Medical | DX: I83.892 Varicose veins of left lower extremity with other complications (principal); M54.50 Low back pain, unspecified; S80.812D Abrasion, left lower leg, subsequent encounter; W11.XXXD Fall on and from ladder, subsequent encounter | CPT/HCPCS: 99213 ==

== ENCOUNTER → 2024-03-24 09:54 | Outpatient (BNVA) | payer OTHER, SELFPAY | PROVIDERS: PCP Nurse Practitioner Family; Visit Provider Physician Assistant | DX: M79.662 Pain in left lower leg (principal); M54.50 Low back pain, unspecified; M54.6 Pain in thoracic spine; R60.0 Localized edema; R20.0 Anesthesia of skin | CPT/HCPCS: 99213 ==

== ENCOUNTER 2024-03-24 14:33 | Outpatient (AMB) | payer OTHER, SELFPAY ==
--- NOTE | 2024-03-24 14:14 | A.OFFPC_ITS ---
Intake Visit Reasons: f/u on labs Intake Note: patient here for telehealth follow up Stars Coordinator Required: No Allergies No Known Allergies Allergy (Verified 03/24/24 14:15) Tobacco use date assessed: 03/24/24 Dental Screening Dental Screen Date: 03/24/24 Did you have a dental visit in the last 12 months?: No Did you have a dental problem in the last 6 months where you did not have access to dental care?: No Was dental information given to patient?: Patient has dentist HPI HPI Comments History of Present Illness Details 48-year-old male [facility] for review of recent lab results. He notes that he has been consuming significant amount of meat. He offers no complaints and denies acute symptoms at this time. 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 Current occupational exposures/hazards: No Cognitive needs: No Hearing needs: No Vision needs: Yes Questionnaire Thrive Questionnaire Date Thrive assessed: 03/04/24 I am a: Patient What is your living situation today?: I have a steady place to live Within the past 12 months, did the food you bought not last and you didn't have the money to get more?: Never true Within the past 12 months, did you worry whether your food would run out before you got money to buy more?: Never true Do you have trouble paying for medicines?: No Do you have trouble getting transportation to medical appointments?: No Do you have trouble paying your heating and electricity bill?: No Do you have trouble taking care of your child, family member or friend?: No Do you have trouble with day-to-day activities such as bathing, preparing meals, shopping, managing finances, etc.?: No Are you currently unemployed and looking for a job?: No Are you interested in more education?: No Please select the resources that you would like help with: None Currently or been in a relationship where the following occur: No concerns reported THRIVE Score: 0 AUDIT C Alcohol Use Questionnaire (AUDIT-C) 3. How often do you have six or more drinks on one occasion?: Never Total Score: 0 SHEEBA-7 AMB Questionnaire SHEEBA-7 Date SHEEBA - 7 assessed: 03/04/24 Source: Developed by Drs. Remberto Novoa, Sugey Arroyo, Silverio Abdalla and colleagues, with an educational sylvia from [employer]. Review of Systems Const Details: Const Denies chills, Denies fatigue, Denies fever(s), Denies headache(s) and Denies weakness ENT Denies dizziness and Denies headache(s) Card Denies chest pain, Denies lightheadedness, Denies dyspnea and Denies other (Palpitations) Resp Denies cough, Denies dyspnea, Denies wheezing and Denies other ( shortness of breath) GI Denies abdominal pain, Denies melena, Denies hematochezia, Denies change in bowel habits, Denies dyspepsia and Denies nausea Denies hematuria and Denies dysuria Musc Denies abnormal gait, Denies myalgias, Denies arthralgias, Denies numbness and Denies tingling Skin/Breast Denies rash, Denies unusual bruising and Denies wounds Neuro Denies abnormal gait, Denies dizziness, Denies headache(s), Denies memory loss, Denies numbness, Denies Sensory deficit (Neuro), Denies tingling and Denies weakness Psych Denies anxiety, Denies depression, Denies memory loss Endo Denies cold intolerance, Denies fatigue, Denies heat intolerance, Denies polydipsia and Denies polyuria Aller/Immun Denies wheezing Physical exam (Primary Care) Tobacco/Smoking Status: Tobacco use Status Tobacco use date assessed 03/24/24 03/24/24 14:17 Patient Tobacco Use Status Never used Tobacco 03/24/24 14:17 e-Cigarette/Vaping Use Never Used 03/24/24 14:17 Thrive Assessment: Date of Thrive Assessment Date Thrive assessed 03/04/24 03/24/24 14:17 Currently or been in a relationship where the following occur: No concerns reported Const Other: Telehealth visit. No physical exam. Telehealth Telehealth Telehealth Platform: Telephone Location of provider rendering services: practice address Location of patient: address on file Patient Identification confirmed using: Name, : Yes Telehealth method: voice only Patient verbally consented to treatment: Yes Patient verbally consented to billing insurance company: Yes Patient informed of any privacy concerns related to visit: Yes Coding Level of Care Code Tele Est Pt Level 3 (24465) Diagnoses Hypercholesterolemia E78.00 Mild anemia D64.9 Time Spent (min) 15 Assessment & Plan Assessment & Plan (1) Hypercholesterolemia: Code(s): E78.00 - Pure hypercholesterolemia, unspecified Category: Medical Plan: Recent total cholesterol and LDL levels are elevated, 211 and 140 respectively. Advised to limit foods high in saturated fat and avoid foods high in trans fat. Routine exercise encouraged. Encouraged to fast for 10-12 hours, may drink water only, and get lipid panel blood work 2-3 days before his next visit. Follow-up for telehealth visit in 2 months or return sooner with symptoms or concerns. Verbalized understanding and agreed with the plan. (2) Mild anemia: Code(s): D64.9 - Anemia, unspecified Category: Medical Plan: Recent RBC and H&H or slightly low, 4.52 and 13.8/41.7 respectively; MCV is normal. Recent kidney function in December was normal. Cause is unknown. Will recheck RBC in 2 months and make changes as needed. Verbalized understanding and agreed with the plan. Orders: Orders Complete Blood Count no Diff 2 Months D64.9 - Anemia, unspecified Lipid Panel 2 Months E78.00 - Pure hypercholesterolemia, unspecified
== END 2024-03-24 15:19 | disposition home or self-care (01) ==
LOC: HO.HMCFM 14:33
PROVIDERS: PCP Nurse Practitioner Family; Visit Provider Nurse Practitioner Family
DX: E78.00 Pure hypercholesterolemia, unspecified (principal); D64.9 Anemia, unspecified

== ENCOUNTER → 2024-04-13 09:54 | Outpatient (BNVA) | payer OTHER, SELFPAY | PROVIDERS: PCP Nurse Practitioner Family; Visit Provider Physician Assistant | DX: M54.50 Low back pain, unspecified (principal); M25.572 Pain in left ankle and joints of left foot; S80.12XD Contusion of left lower leg, subsequent encounter; W11.XXXD Fall on and from ladder, subsequent encounter | CPT/HCPCS: 99214 ==

== ENCOUNTER 2024-04-20 07:23 | Outpatient (REF) | payer OTHER, SELFPAY ==
--- NOTE | ~2024-04-20 | MR_ITS ---
CLINICAL HISTORY: PERSISTENT EDEMA MR left ankle without gadolinium Comparison: CR/MI/SR - XR TIBIA FIBULA LT 2V - 01/07/24 11:52 EDT Findings: No acute fracture or pathologic bone lesion. Moderate degenerative marrow edema and subchondral microcyst formation within the medial navicular adjacent to the naviculocuneiform joint. No joint effusion. Lateral ligamentous complex intact. Mild T2 signal elevation within the deltoid ligament, consistent with partial-thickness tearing. Flexor, extensor, and peroneal tendons are intact. Small amount of fluid surrounds the tibialis posterior, flexor digitorum longus, flexor hallucis longus, peroneus longus and brevis low-grade tearing of the Achilles tendon distally. Intact plantar fascia. IMPRESSION: 1. Naviculocuneiform joint osteoarthritis. 2. Medial and lateral flexor tenosynovitis. 3. Low-grade tearing of the Achilles tendon. This document has been electronically signed by: Evon Harry MD on 04/20/2024 15:52:37
== END 2024-04-20 07:24 | disposition home or self-care (01) ==
LOC: HO.MRI 07:23
PROVIDERS: PCP Nurse Practitioner Family; Visit Provider Internal Medicine
DX: M25.572 Pain in left ankle and joints of left foot (principal)
CPT/HCPCS: 73721

== ENCOUNTER → 2024-04-20 07:35 | Outpatient (BNV) | payer OTHER, SELFPAY | PROVIDERS: PCP Nurse Practitioner Family; Visit Provider Radiology Diagnostic Radiology | DX: M19.072 Primary osteoarthritis, left ankle and foot (principal); M65.872 Other synovitis and tenosynovitis, left ankle and foot; M66.872 Spontaneous rupture of other tendons, left ankle and foot | CPT/HCPCS: 73721 ==

== ENCOUNTER 2024-04-23 18:38 | Outpatient (REF) | payer OTHER, SELFPAY ==
--- NOTE | ~2024-04-23 | MR_ITS ---
EXAMINATION: MR LUMBAR SPINE WITHOUT CONTRAST CLINICAL INFORMATION: Low back pain. Left lower extremity weakness and numbness and pain. COMPARISON: None available. TECHNIQUE: MRI of the lumbar spine was obtained using routine sequences without contrast. FINDINGS: Last rib-bearing vertebra labeled T12. No bone marrow STIR signal abnormality. Multilevel disc desiccation and marginal osteophyte formation more conspicuous at T11-12, L2-3, L3-4 and L4-5 levels. Grade 1 retrolisthesis, L2-3 and L3-4 levels. Conus medullaris ends at superior endplate of L1 with normal signal. T12-L1: No disc herniation. No neuroforamina stenosis. L1-2: No disc herniation. No neuroforamina stenosis. L2-3: There is a broad-based right foraminal and extraforaminal disc herniation resulting in right neuroforamina and stenosis encroaching the exiting nerve root, L2. No gross central spinal canal stenosis. L3-4: Bilateral facet joint and ligamentum flavum hypertrophy. Facet effusion, bilaterally. No gross central spinal canal stenosis. Bilateral neuroforamina narrowing. L4-5: Broad-based disc bulging. Facet joint hypertrophy. Reduced AP diameter of the thecal sac. Bilateral neuroforamina narrowing. No compression upon neural elements. L5-S1: Broad-based disc bulging. Facet joint hypertrophy. No compression upon neural elements. No prevertebral compartment hematoma, mass or fluid collection. Hyperintense T2 cystic lesions in the kidneys. MR/MR lumbar spine wo con IMPRESSION: Multilevel spondylosis more conspicuous at L2-3 and L4-5. Right foraminal and extraforaminal broad-based disc herniation, L2-3 likely encroaching the right L2 exiting nerve root. Electronically signed by: Gurpreet Maza MD 04/25/2024 08:06 AM [facility]
== END 2024-04-23 18:39 | disposition home or self-care (01) ==
LOC: HO.MRI 18:38
PROVIDERS: PCP Nurse Practitioner Family; Visit Provider Internal Medicine
DX: M54.50 Low back pain, unspecified (principal)
CPT/HCPCS: 72148

== ENCOUNTER → 2024-04-23 18:45 | Outpatient (BNV) | payer OTHER, SELFPAY | PROVIDERS: PCP Nurse Practitioner Family; Visit Provider Radiology Diagnostic Radiology | DX: M47.896 Other spondylosis, lumbar region (principal); M51.26 Other intervertebral disc displacement, lumbar region | CPT/HCPCS: 72148 ==

== ENCOUNTER → 2024-04-27 10:01 | Outpatient (BNVA) | payer OTHER, SELFPAY | PROVIDERS: PCP Nurse Practitioner Family; Visit Provider Physician Assistant | DX: M54.50 Low back pain, unspecified (principal); M25.572 Pain in left ankle and joints of left foot; S80.12XD Contusion of left lower leg, subsequent encounter; W11.XXXD Fall on and from ladder, subsequent encounter | CPT/HCPCS: 99214 ==

== ENCOUNTER 2024-05-10 08:45 | Outpatient (REF) | payer OTHER, SELFPAY ==
--- NOTE | 2024-05-10 09:00 | EMG_ITS ---
Left tibial and peroneal motor studies were performed. Left superficial peroneal, sural, and median and lateral mixed plantar sensory studies were performed. Tibial H-reflex was obtained and paraspinal and foot muscles were tested with a needle. 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 MD MEGAN Shields/CHANEL / [id number]
== END 2024-05-10 08:46 | disposition home or self-care (01) ==
LOC: HO.NEURO 08:45
PROVIDERS: PCP Nurse Practitioner Family; Visit Provider Physician Assistant
DX: M25.572 Pain in left ankle and joints of left foot (principal); R20.0 Anesthesia of skin; R20.2 Paresthesia of skin
CPT/HCPCS: 95886; 95910

== ENCOUNTER 2024-05-13 10:08 | Outpatient (AMB) | payer OTHER, SELFPAY ==
--- NOTE | 2024-05-13 10:11 | A.OFFVIS_ITS ---
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 This is a Worker's Comp case #[id number] DOI: 01/07/24. Patient reports he fell off 12 feet down from a roof in December,. He suffered a back injury and left lower extremity injury. He is seeing Orthopedics for left ankle pain and states his hematoma of left lower extremity has been reabsorbed but continues with numbness and tingling. His back pain is axial and also discogenic with intermittent radiation into right hip and anterior thigh. Seated and supine SLR testing is negative bilaterally. Patient is currently in physical therapy with partial improvement in his pain and has not reached his maximum medical improvement and is interested to undergo therapeutic back injection. Back pain is function limiting and has been resis tant to conservative treatments including PT, medications, heat, and activity modifications. He was referred to our office by [facility]. Patient has been back to work since injury on light duty. Denies any fever or chills, abdominal or groin pain, weakness, foot drop, bladder or bowel dysfunction or saddle anesthesia. Oswestry Low Back Disability Score=19 (moderate disability) Onset: 01/07/24 Location: Mid to lower back pain Duration: 5 months Characteristics of symptom or complaint: Sharp, cutting, shooting, cramping, burning, stabbing, tight, sore, heavy Aggravating or associated factors: Prolonged sitting or standing, lifting, bend ing, twisting, pulling Relieving factors: Heat, rest, Tylenol, NSAIDs, gabapentin prn, activity modications Treatment: PT, home exercise program, light duty at work, lumbar spine MRI [facility] Medical History (Updated 05/16/24 @ 11:34 by BRENNEN May) Mild anemia Hypercholesterolemia Family History Father Alcohol abuse Diabetes Leukemia Social History Housing: House Alcohol intake: current Alcohol intake frequency: holidays/special occasions only Patient Tobacco Use Status: Former Tobacco user e-Cigarette/Vaping Use: Never Used service: No Current occupational status: employed 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 Alert and oriented. Mood and affect appropriate. Follows and participates in conversation appropriately. Respiratory effort is unlabored. No cough. Able to transition from sit to stand unassisted. Ambulates with right normal heel strike and toe off, pain on the left with heel or toe standing due to left ankle pain. General: Yes no CVA tenderness Back/Spine/Pelvis Other: Limited lumbar ROM due to pain. Demonstrates 5/5 left and 4/5 right strength of quadriceps bilaterally as well as 4/5 left and 5/5/ right flexion/dorsiflexion of bilateral feet against resistance. 2+ pedal pulses bilaterally. Supine and seated straight leg rise with dorsiflexion negative bilaterally. +2 patellar and Achilles reflexes bilaterally. Facet loading test positive bilaterally. Yocasta sign, Jonah?s, Pelvic compression and Stinchfield tests are negative bilaterally. No groin pain with I/E hip rotations. Valsalva maneuver negative. Back: no CVA tenderness Cervical Spine: cervical ROM normal, cervical muscular tenderness and No Cervical spine tenderness Thoracic/Lumbar Spine: thoracic and lumbar spine normal to inspection, No Thoracic/lumbar spine scar(s), Lasegue's sign negative, straight leg raise negative bilaterally, pain with thoraco-lumbar ROM, paraspinal muscle tenderness, thoraco-lumbar ROM limited, No thoracic spinal tenderness and lumbar spinal tenderness (L4-S1) Pelvis: no buttock tenderness Sacroiliac joints: bilaterally nontender Extrem General: Yes capillary refill normal, Yes no clubbing, cyanosis or edema and Yes no calf tenderness Results Reviewed Results Reviewed: MR LUMBAR SPINE WITHOUT CONTRAST 04/23/24 CLINICAL INFORMATION: Low back pain. Left lower extremity weakness and numbness and pain. COMPARISON: None available. TECHNIQUE: MRI of the lumbar spine was obtained using routine sequences without contrast. FINDINGS: Last rib-bearing vertebra labeled T12. No bone marrow STIR signal abnormality. Multilevel disc desiccation and marginal osteophyte formation more conspicuous at T11-12, L2-3, L3-4 and L4-5 levels. Grade 1 retrolisthesis, L2-3 and L3-4 levels. Conus medullaris ends at superior endplate of L1 with normal signal. T12-L1: No disc herniation. No neuroforamina stenosis. L1-2: No disc herniation. No neuroforamina stenosis. L2-3: There is a broad-based right foraminal and extraforaminal disc herniation resulting in right neuroforamina and stenosis encroaching the exiting nerve root, L2. No gross central spinal canal stenosis. L3-4: Bilateral facet joint and ligamentum flavum hypertrophy. Facet effusion, bilaterally. No gross central spinal canal stenosis. Bilateral neuroforamina narrowing. L4-5: Broad-based disc bulging. Facet joint hypertrophy. Reduced AP diameter of the thecal sac. Bilateral neuroforamina narrowing. No compression upon neural elements. L5-S1: Broad-based disc bulging. Facet joint hypertrophy. No compression upon neural elements. No prevertebral compartment hematoma, mass or fluid collection. Hyperintense T2 cystic lesions in the kidneys. IMPRESSION: Multilevel spondylosis more conspicuous at L2-3 and L4-5. Right foraminal and extraforaminal broad-based disc herniation, L2-3 likely encroaching the right L2 exiting nerve root. CT HEAD WITHOUT CONTRAST CT CERVICAL SPINE WITHOUT CONTRAST 01/07/24 CLINICAL INFORMATION: Fall 10-15 feet. Pain. COMPARISON: None available. TECHNIQUE: Contiguous axial imaging was performed from the skull base to vertex without intravenous administration of contrast. Contiguous axial imaging was performed from the upper chest through the skull base without intravenous administration of contrast. Coronal and sagittal reformats were obtained at the acquisition workstation. This CT examination was performed using dose optimization techniques as appropriate, variously including the following: *Automated exposure control. *Adjustment of mA and/or kV according to patient size (this includes techniques or standardized protocols for targeted exams where dose is matched to indication/reason for exam; i.e. extremities or head). *Use of iterative reconstruction technique. DLP: 1250 mGy-cm FINDINGS: Head: There is no evidence of acute intracranial hemorrhage or edematous territorial infarction. Owen-white matter differentiation is preserved. There is no abnormal attenuation within the brain parenchyma. The ventricles are normal in morphology and size. No evidence for obstructive hydrocephalus. No abnormal mass effect or midline shift. No extra-axial fluid collections. No acute soft tissue or osseous abnormalities. Mild mucosal thickening of the paranasal sinuses. The mastoid air cells and middle ear cavities are clear. Cervical Spine: The atlantooccipital and atlantoaxial articulations remain well aligned. Straightening of the normal cervical lordosis. Otherwise, there is anatomic alignment of the vertebral bodies and posterior elements. Congenital nonunion of the posterior arch of C1. No evidence of acute fracture or subluxation. The vertebral body heights are maintained. Moderate degenerative disc disease from C4-C6. Mild degenerative disc disease at all additional levels. Facet and uncovertebral joint arthropathy leads to osseous encroachment on the neural foramina from C3-C6. There is no prevertebral soft tissue swelling. The thyroid gland and remaining cervical soft tissues are within normal limits. The lung apices demonstrate no abnormalities. IMPRESSION: 1. No evidence of acute intracranial hemorrhage or edematous territorial infarction. 2. No evidence of acute fracture or traumatic subluxation of the cervical spine. 3. Moderate multilevel degenerative spondyloarthropathy of the cervical spine. CT abdomen pelvis w IV con 01/07/24 IMPRESSION: OSSEOUS STRUCTURES Minimal diffuse degenerative changes of the spine. Assessment & Plan Assessment & Plan (1) Lumbar back pain with radiculopathy affecting right lower extremity: Code(s): M54.16 - Radiculopathy, lumbar region Category: Medical (2) Muscle spasm of back: Code(s): M62.830 - Muscle spasm of back Category: Medical (3) Lumbar spondylosis: Code(s): M47.816 - Spondylosis without myelopathy or radiculopathy, lumbar region Category: Medical (4) Lumbar disc herniation: Code(s): M51.26 - Other intervertebral disc displacement, lumbar region Category: Medical Plan Discussed interventional treatments treatments for axial low back and discogenic back pain, including diagnostic vs therapeutic injections, neuromodulation with Sprint PNS trial and lumbar RFA procedures. Schedule Right L2-L3 TFESI with local and fluoroscopy. Expectations, risks and benefits were reviewed. Patient is aware he will be contacted to schedule this procedure. Scripts provided for methocarbamol and lidocaine patches. Side effects and precautions were discussed with patient. All questions were answered and the patient is in agreement of plan. Follow-up after injections and sooner as needed. Anticoagulation: Patient is not on anticoagulation Justification for interventional therapy: ? Patient with average pain > 6/10 ? Patient has exhausted conservative therapy, including PT, NSAIDs, Tylenol, g abapentin, heat therapy, activity modifications ? Patient actively performing physical therapy and home exercise program The risks, consequences, alternatives, and benefits of various treatment options were discussed with the patient in great detail, including conservative management, injections and procedures. Patient is aware of hyperglycemic effects of steroids. Medications: New methocarbamol 750 mg PO BID 30 days PRN 60 tabs 0RF muscle spasms M54.16 - Radiculopathy, lumbar region, M62.830 - Muscle spasm of back lidocaine 5% leave on most painful area for up to 12 hrs topical 30 days 30 ea 0RF pain M47.816 - Spondylosis without myelopathy or radiculopathy, lumbar region, M54.16 - Radiculopathy, lumbar region Coding Level of Care Code New Pt Level 4 (55408) Complex EM visit Add On G2211 Diagnoses Lumbar back pain with radiculopathy affecting right lower extremity M54.16 Muscle spasm of back M62.830 Lumbar spondylosis M47.816 Lumbar disc herniation M51.26
[2024-05-13 10:16] VITALS: BP 136/81; PULSE 66; O2SAT 100; BMI 32.8
== END 2024-05-13 10:43 | disposition home or self-care (01) ==
PROVIDERS: PCP Nurse Practitioner Family; Visit Provider Nurse Practitioner Family
DX: M54.16 Radiculopathy, lumbar region (principal); M62.830 Muscle spasm of back; M47.816 Spondylosis without myelopathy or radiculopathy, lumbar region; M51.26 Other intervertebral disc displacement, lumbar region
CPT/HCPCS: 99204; G2211

== ENCOUNTER → 2024-05-13 10:08 | Outpatient (BNVA) | payer OTHER, SELFPAY | PROVIDERS: PCP Nurse Practitioner Family; Visit Provider Nurse Practitioner Family | DX: R10.9 Unspecified abdominal pain (principal); G89.29 Other chronic pain; M47.26 Other spondylosis with radiculopathy, lumbar region; M62.830 Muscle spasm of back; M51.26 Other intervertebral disc displacement, lumbar region | CPT/HCPCS: 99202 ==

== ENCOUNTER 2024-05-13 15:28 | Outpatient (AMB) | payer OTHER, SELFPAY ==
--- NOTE | 2024-05-13 15:36 | MHC.PC.OV ---
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 Allergies No Known Allergies Allergy (Verified 05/13/24 15:57) Medication List - Last Reconciled 05/13/24 by Marky Siu CNP acetaminophen 1,000 mg PO DAILY PRN gabapentin 100 mg PO BEDTIME 1 week ibuprofen 800 mg PO TID lidocaine 5% leave on most painful area for up to 12 hrs topical 30 days methocarbamol 750 mg PO BID PRN 30 days Tobacco use date assessed: 05/13/24 Dental Screening Dental Screen Date: 03/24/24 Did you have a dental visit in the last 12 months?: Yes Did you have a dental problem in the last 6 months where you did not have access to dental care?: No Was dental information given to patient?: Patient has dentist HPI HPI Comments History of Present Illness Details 48-year-old male presents with complaints of intermittent right flank pain for the past 2 years. He denies hematuria, dysuria, or discharge with urination. He denies fever, chills, body aches, fatigue, weakness. He had an MRI of his lumbar spine on 04/23/2024 and presents the image of his right pelvis (from the MRI), stating that it is his right kidney and the there is a spot on which may be the source of his pain. There is no record of an MRI of his kidneys. He denies acute symptoms at this time. 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 Remberto Novoa, Sugey Arroyo, Silverio Abdalla and colleagues, with an educational sylvia from [employer]. Review of Systems Const Details: Const Denies chills, Denies fatigue, Denies fever(s), Denies headache(s) and Denies weakness ENT Denies dizziness and Denies headache(s) Card Denies chest pain, Denies lightheadedness, Denies dyspnea and Denies other (Palpitations) Resp Denies cough, Denies dyspnea, Denies wheezing and Denies other ( shortness of breath) GI Denies abdominal pain, Denies melena, Denies hematochezia, Denies change in bowel habits, Denies dyspepsia and Denies nausea Denies hematuria and Denies dysuria Musc Denies abnormal gait, Denies myalgias, Denies arthralgias, Denies numbness and Denies tingling Skin/Breast Denies rash, Denies unusual bruising and Denies wounds Neuro Denies abnormal gait, Denies dizziness, Denies headache(s), Denies memory loss, Denies numbness, Denies Sensory deficit (Neuro), Denies tingling and Denies weakness Psych Denies anxiety, Denies depression, Denies memory loss Endo Denies cold intolerance, Denies fatigue, Denies heat intolerance, Denies polydipsia and Denies polyuria Aller/Immun Denies wheezing Physical exam (Primary Care) Vital Signs: Last Vital Signs Temp 98.2 F 05/13/24 15:38 Pulse 66 05/13/24 15:38 Resp 16 05/13/24 15:38 BP 126/75 05/13/24 15:38 Pulse Ox 97 05/13/24 15:38 Oxygen Delivery Method Room Air 05/13/24 15:38 BMI result Body Mass Index 33.5 Tobacco/Smoking Status: Tobacco use Status Tobacco use date assessed 05/13/24 05/13/24 15:40 Patient Tobacco Use Status Former Tobacco user 05/13/24 15:40 e-Cigarette/Vaping Use Never Used 05/13/24 15:40 Thrive Assessment: Date of Thrive Assessment Date Thrive assessed 05/13/24 05/13/24 15:40 Const Other: General: no acute distress and well developed Nutritional Appearance: well nourished Orientation/consciousness: patient oriented x3 [facility] Head: Yes normocephalic and Yes atraumatic Eyes General: appearance normal, both eyes and all related structures Pupils: Equal, round and reactive pupils present EOM: EOMs intact bilaterally Resp Effort & Inspection: normal respiratory effort Auscultation: clear to auscultation bilaterally Cardio Rate: regular rate Rhythm: regular rhythm Heart sounds: S1 normal heart sound present, S2 normal heart sound present, no gallops, no murmurs and no rubs GI Palpation (GI): No Abdominal aortic bruit present, Soft to palpation, nontender, No hepatosplenomegaly present and No Rebound tenderness present Auscultation: normal bowel sounds General: Yes no CVA tenderness Back/Spine/Pelvis Back: no CVA tenderness Cervical Spine: cervical ROM normal and No Cervical spine tenderness Thoracic/Lumbar Spine: thoraco-lumbar ROM normal, No pain with thoraco-lumbar ROM, No thoracic spinal tenderness and No lumbar spinal tenderness Extrem General: Yes normal to inspection, No edema and No calf tenderness Skin General: warm and dry. Normal skin color. Normal skin turgor Lesions: no lesions Rashes: no rashes Trauma: no lacerations or abrasions Wounds: no wounds Nails: normal Neuro General: patient oriented x3, gait normal and no focal neuro deficit Cranial nerves: Yes Equal, round and reactive pupils present Cognition (Neuro): normal cognition Gait exam (Neuro): Normal gait present Sensory Exam: No Sensory deficit (Neuro) Psych Appearance: grossly normal Affect: normal affect Attitude: cooperative Thought process: Normal thought process present Coding Level of Care Code Est Pt Level 3 (90643) Diagnoses Chronic right flank pain R10.9; G89.29 Assessment & Plan Assessment & Plan (1) Chronic right flank pain: Code(s): R10.9 - Unspecified abdominal pain; G89.29 - Other chronic pain Category: Medical Plan: Intermittent right flank pain for the past 2 years. No associated symptoms. Recent urinalysis in 03/07/2024 was unremarkable. No CVA tenderness. Adequate hydration encouraged. Avoid NSAIDs such as ibuprofen because of nephrotoxicity. KUB ordered. Will review results and make changes as needed. Advised to perform fasting lipid panel blood work a few days before next visit. Follow-up next month for hypercholesterolemia. Return sooner with worsening or new symptoms. Verbalized understanding and agreed with treatment plan. Orders: Orders XR KUB Today G89.29 - Other chronic pain, R10.9 - Unspecified abdominal pain
[2024-05-13 15:38] VITALS: BP 126/75; PULSE 66; RESP 16; TEMP 36.8; O2SAT 97; BMI 33.5
== END 2024-05-13 16:05 | disposition home or self-care (01) ==
PROVIDERS: PCP Nurse Practitioner Family; Visit Provider Nurse Practitioner Family
DX: R10.9 Unspecified abdominal pain (principal); G89.29 Other chronic pain

== ENCOUNTER → 2024-05-18 10:11 | Outpatient (BNVA) | payer OTHER, SELFPAY | PROVIDERS: PCP Nurse Practitioner Family; Visit Provider Physician Assistant | DX: S86.012D Strain of left Achilles tendon, subsequent encounter (principal); W11.XXXD Fall on and from ladder, subsequent encounter; M54.50 Low back pain, unspecified; G62.9 Polyneuropathy, unspecified | CPT/HCPCS: 99213 ==

== ENCOUNTER 2024-05-26 10:02 | Outpatient (RCR) | payer OTHER, SELFPAY ==
--- NOTE | 2024-03-10 09:41 | MHC.PT.EP ---
[facility] [place] [facility] [place] [facility] [place] [facility] [address] José Miguel Zuniga [address] [phone] F: [phone] F: [phone] F: [phone] F: [phone] Physical Therapy Plan of Care Date of Evaluation: 03/10/24 Date of Surgery: N/A Diagnosis: back pain (RL) Assessment: pt is a 48 y/o male presenting to physical therapy w/ referring diagnosis of back pain. Impairments include pain, decreased range of motion, decreased strength, impaired functional mobility, impaired postural awareness, and altered ambulation mechanics. pt is a good candidate for skilled PT due to age, potential remediation of impairments, typical disease/condition progression and prognosis, comorbidities, and motivation. pt would benefit from skilled PT intervention to provide a tailored strengthening and stretching exercise program, functional training, gait training, postural re-training, neuromuscular re-education, modalities as needed for pain, equipment safety demonstration. Frequency and Duration: The patient will be seen 2x/wk for 5 wks Short Term Goals: pt will be I w/ HEP to promote self-management of condition. pt will demo proper sitting posture w/ lumbar roll to promote neutral spine w/ seated ADLs. Chcf Goals: pt will report a statistically significant improvement in self-reported outcome measure, Dionisio, to promote return to PLOF. pt will demo proper lifting mechanics for 50# object x5 reps w/o verbal cueing to promote return to lifting. Treatment Plan: Modalities to reduce pain, spasms and effusion. Manual therapy to restore motion and function. Therapeutic exercise to improve strength and flexibility. Neuromuscular re-education for posture and balance. Therapeutic activities to return to functional activities of daily living. Electronically signed by: Alessandra Woodard PT, DPT Please sign and return to therapist. Thank you for your referral.
--- NOTE | 2024-05-26 14:44 | MHC.PT.DC ---
[facility] [place] Office [place] [facility] [place] Office [address] José Miguel Zuniga [address] [phone] F: [phone] F: [phone] F: [phone] F: [phone] Physical Therapy Discharge Report Diagnosis: back pain (RL) Date of Surgery: N/A Date of Evaluation: 03/10/24 Date of Discharge: 05/26/24 Treatments to Date: 16 Cancellations to Date: 8 No Shows to Date: 0 Discharge Status: Insurance Declined Tx Recommend MD Follow-up Discharge Summary: The patient overall has made fair progress in regards to his back pain with physical therapy intervention. Seemingly, in the beginning he was noticing some improvement of back pain; however, after he received his MRI he had increased pain reports. He was instructed in neutral spine lifting mechanics, a home exercise program for hip and core strengthening, and spine mobility activities/stretches. He finds the mechanical traction is the most helpful in managing his pain. He is interested in purchasing a home unit to continue with this on his own. As he is not noticing any significant improvement with his back pain and radicular symptoms I cannot continue to recommend PT intervention. His insurance will not endorse any additional visits either. He is discharged from this plan of care at this time with the recommendation to continue with his home exercise program, heating pad, and a home traction unit if he pursues one. Electronically signed by: Alessandra Woodard PT, DPT Please sign and return to therapist. Thank you for your referral.
== END 2024-05-26 14:44 | disposition home or self-care (01) ==
LOC: HO.PT 10:02
PROVIDERS: PCP Nurse Practitioner Family; Visit Provider Physician Assistant Medical
DX: M54.50 Low back pain, unspecified (principal)
CPT/HCPCS: 97012; 97110; 97140; 97161; 97164; 97530

== ENCOUNTER 2024-06-08 07:36 | Outpatient (REF) | payer OTHER, SELFPAY ==
[2024-06-08 09:15] LABS: Hematocrit 42.9 % (42.0-52.0); Hemoglobin 14.2 g/dl (14.0-18.0); Mean Corpuscular HGB Conc 33.1 g/dl (31.0-36.0); Mean Corpuscular Hemoglobin 29.9 pg (27.0-33.0); Mean Corpuscular Volume 90.3 fL (80.0-98.0); Platelet Count 258 X10*3/uL (160-400); Red Blood Count 4.75 X10*6/uL (4.60-5.80); Red Cell Distribution Width 12.3 % (11.0-16.0); White Blood Count 6.1 X10*3/uL (4.8-10.8)
[2024-06-08 09:40] LABS: Cholesterol 200 mg/dL (<200); HDL Cholesterol 44 mg/dL (>40); LDL Cholesterol Calculated 114 mg/dL (<100); Triglycerides 211 mg/dL (<150)
== END 2024-06-08 07:37 | disposition home or self-care (01) ==
LOC: HO.WFDLDS 07:36
PROVIDERS: Visit Provider Nurse Practitioner Family
DX: D64.9 Anemia, unspecified (principal); E78.00 Pure hypercholesterolemia, unspecified
CPT/HCPCS: 36415; 80061; 85027

== ENCOUNTER 2024-06-10 14:01 | Outpatient (AMB) | payer OTHER, SELFPAY ==
--- NOTE | 2024-06-10 13:55 | MHC.PC.OV ---
Intake Visit Reasons: TELE Hld AND ANEMIA Intake Note: patient here for follow up telehealth for HLD and anemia Supervisor Looping Required: No Allergies No Known Allergies Allergy (Verified 06/10/24 13:55) Tobacco use date assessed: 06/10/24 Dental Screening Dental Screen Date: 06/10/24 Did you have a dental visit in the last 12 months?: Yes Did you have a dental problem in the last 6 months where you did not have access to dental care?: No Was dental information given to patient?: Patient has dentist HPI HPI Comments History of Present Illness Details 48-year-old male presents for anemia and hyperlipidemia follow-up. He admits to making healthy lifestyle changes. He offers no complaints and denies acute symptoms at this time. 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 Remberto Novoa, Sugey Arroyo, Silverio Abdalla and colleagues, with an educational sylvia from [employer]. Review of Systems Const Details: Denies chills, Denies fatigue, Denies fever(s), Denies headache(s) and Denies weakness Cardiac Denies chest pain, Denies claudication, Denies leg edema, Denies lightheadedness, Denies palpitations, Denies dyspnea, Denies dyspnea on exertion, Denies orthopnea and Denies other (Loss of consciousness) Resp Denies cough, Denies excessive phlegm production, Denies dyspnea, Denies dyspnea on exertion, Denies snoring and Denies wheezing Physical exam (Primary Care) Tobacco/Smoking Status: Tobacco use Status Tobacco use date assessed 06/10/24 06/10/24 13:58 Patient Tobacco Use Status Former Tobacco user 06/10/24 13:58 e-Cigarette/Vaping Use Never Used 06/10/24 13:58 Thrive Assessment: Date of Thrive Assessment Date Thrive assessed 05/13/24 06/10/24 13:58 Const Other: Patient is alert oriented x3. Telehealth Telehealth Telehealth Platform: Telephone Location of provider rendering services: practice address Location of patient: address on file Patient Identification confirmed using: Name, : Yes Telehealth method: voice only Patient verbally consented to treatment: Yes Patient verbally consented to billing insurance company: Yes Patient informed of any privacy concerns related to visit: Yes Coding Level of Care Code Est Pt Level 3 (91834) Diagnoses Hyperlipidemia E78.5 Mild anemia D64.9 Time Spent (min) 10 Assessment & Plan Assessment & Plan (1) Hyperlipidemia: Code(s): E78.5 - Hyperlipidemia, unspecified Category: Medical Plan: Recent triglycerides level is elevated, 211 from 130, total cholesterol is slightly elevated, 200 from 211, LDL level is slightly elevated, 114 from 140, HDL level is normal, 44. Advised to limit foods high in saturated fat and avoid foods high in trans fat. Routine exercise encouraged. Fast for 10-12 hours, may drink water, and perform lipid panel blood work 2-3 days before next visit. Follow-up for telehealth visit in 2 months. Return sooner with symptoms or concerns. Verbalized understanding and agreed with treatment plan. (2) Mild anemia: Code(s): D64.9 - Anemia, unspecified Category: Medical Plan: Anemia has resolved. Recent RBC and H&H levels are normal. Orders: Orders Lipid Panel 2 Months E78.5 - Hyperlipidemia, unspecified
== END 2024-06-10 14:19 | disposition home or self-care (01) ==
LOC: HO.HMCFM 14:01
PROVIDERS: PCP Nurse Practitioner Family; Visit Provider Nurse Practitioner Family
DX: E78.5 Hyperlipidemia, unspecified (principal); D64.9 Anemia, unspecified

== ENCOUNTER → 2024-06-22 10:12 | Outpatient (BNVA) | payer OTHER, SELFPAY | PROVIDERS: PCP Nurse Practitioner Family; Visit Provider Physician Assistant | DX: S86.012D Strain of left Achilles tendon, subsequent encounter (principal); S84.92XD Injury of unspecified nerve at lower leg level, left leg, subsequent encounter; W11.XXXD Fall on and from ladder, subsequent encounter; M54.50 Low back pain, unspecified; G62.9 Polyneuropathy, unspecified | CPT/HCPCS: 99214 ==

== ENCOUNTER 2024-06-23 08:05 | Outpatient (REF) | payer OTHER, SELFPAY ==
--- NOTE | ~2024-06-23 | FL_ITS ---
EXAMINATION: FL GUIDANCE ONLY HISTORY: M54.16 - Radiculopathy, lumbar region COMPARISON: None available. TECHNIQUE: Fluoroscopy time: 0.3 minutes. Cumulative Dose: 5.34 mGy. DAP: 0.0331 mGym2 Images: 3. FINDINGS: Images demonstrate a needle and contrast material in the region of a right neural foramen. FL/FL guidance in treatment room IMPRESSION: Fluoroscopy during procedure. Please see procedure report for additional information. Electronically signed by: Remberto Patton MD 06/24/2024 07:31 AM EDT
== END 2024-06-23 08:06 | disposition home or self-care (01) ==
LOC: CF 08:05
PROVIDERS: Visit Provider Internal Medicine
DX: M54.16 Radiculopathy, lumbar region (principal)
CPT/HCPCS: 64483; J1100; J2003; Q9967

== ENCOUNTER 2024-06-23 12:44 | Outpatient (AMB) | payer OTHER, SELFPAY ==
[2024-06-23 12:49] VITALS: BP 131/76; PULSE 78; RESP 16; O2SAT 98
--- NOTE | 2024-06-23 12:49 | A.OFFVIS_ITS ---
Vital Signs 06/23/24 12:49 06/23/24 13:10 BP 131/76 133/83 Blood Pressure Location Lt brachial Lt brachial Position Sitting Sitting Respiration 16 16 Pulse 78 78 Pulse Source Pulse Oximeter Pulse Oximeter Pulse Oximetry (%) 98 98 Oxygen Delivery Method Room Air Room Air Intake Visit Reasons: Right L2-L3 TFESI [employer] Principal Required: No Allergies No Known Allergies Allergy (Verified 06/23/24 12:50) Medication List - Last Reconciled 06/23/24 by Candie Robert LPN acetaminophen 1,000 mg PO DAILY PRN gabapentin 100 mg PO BEDTIME 1 week ibuprofen 800 mg PO TID lidocaine 5% leave on most painful area for up to 12 hrs topical 30 days methocarbamol 750 mg PO BID PRN 30 days HPI HPI Right L2-L3 TFESI: Details: Patient presents for scheduled procedure. Denies any recent cough, cold, infection, fever or other significant changes in medical history since last office visit. 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 The patient was placed in the prone position on the fluoroscopy table. The lum bosacral area was prepped with chloraprep, allowed to dry and draped in sterile fashion. Using fluoroscopy, the skin overlying our target was anesthetized with 0.5% lidocaine. A 22 gauge 3.5 inch spinal needle was advanced to the safe triangle in the upper pole of the right L2 foramen. No paresthesias were elicited with needle placement and aspiration was negative for blood and CSF. Correct needle position was confirmed with approximately 1 ml contrast dye (Omnipaque 180 mg/ml) injected under real-time fluoroscopy. No evidence of vascular or intrathecal uptake was seen and there was both epidural and peripheral spread of the contrast agent. 10 mg dexamethasone plus 1 ml containing 0.5% lidocaine was slowly injected. The needle was flushed and removed. the same procedure was repeated for the remaining levels. The skin was cleansed and a sterile bandages were applied. The patient tolerated the procedure well and no complications were encountered. Following the procedure the patient's vital signs were stable. The patient was discharged home in good condition with post-procedural instructions. Time Out: Immediately prior to the procedure, the following was verbally confirmed that there is a signed consent form and that the correct patient, planned procedure, site and side are consistent with documentation and that necessary equipment and/or blood products are available prior to the start of the case. Complications: none EBL: <5 cc 70300 - Lumbar/Sacral Procedure code (CPT) selection complete Assessment & Plan Assessment & Plan (1) Lumbar back pain with radiculopathy affecting right lower extremity: Code(s): M54.16 - Radiculopathy, lumbar region Category: Medical Plan Patient is status post right L2/L3 TFESI. Patient tolerated procedure well and was discharged home in stable condition with discharge instructions. All questions were answered. We will follow-up via telephone or in clinic to assess response to therapy. A follow-up appointment was made during today's visit. Orders: Orders FL guidance in treatment room Today M54.16 - Radiculopathy, lumbar region Coding Level of Care Code Procedure Only Diagnoses Lumbar back pain with radiculopathy affecting right lower extremity M54.16 CPT Codes Transforaminal Epidural Steroid Inj - TESI 3: 15424 - Lumbar/Sacral ([id number])
[2024-06-23 13:10] VITALS: BP 133/83; PULSE 78; RESP 16; O2SAT 98
== END 2024-06-23 13:12 | disposition home or self-care (01) ==
LOC: HO.PMCPRC 12:44
PROVIDERS: PCP Nurse Practitioner Family; Visit Provider Internal Medicine
DX: M54.16 Radiculopathy, lumbar region (principal)
CPT/HCPCS: 64483

== ENCOUNTER 2024-07-14 10:00 | Outpatient (RCR) | payer OTHER, SELFPAY ==
--- NOTE | 2024-06-15 17:37 | MHC.PT.EP ---
[facility] [place] Office [place] Office [place] Office [address] José Miguel Zuniga [address] [phone] F: [phone] F: [phone] F: [phone] F: [phone] Physical Therapy Plan of Care Date of Evaluation: 06/14/24 Date of Surgery: Diagnosis: L ankle sprain, Achilles tear, tibial neuropathy. Assessment: Pt is a 48 y/o male who is referred to PT for eval and treat of L ankle sprain, Achilles tear, tibial neuropathy from an injury which occurred on January 07 2024 when he fell from a ladder while at work and stating his L leg was caught between the rungs when he and the ladder fell. 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 His condition is resulting in decreased tolerance for lifting objects of weight from the floor, walking moderate to long distances, standing for duration, squatting, negotiating stairs and returning to physical hobbies and fitness activities. persists with swelling and decreased sensation of his anterolateral gregorio secondary to decreased L ankle ROM and strength, lower leg neuropathy, mild AT tearing and flexor tenosynovitis on imaging, continues LE swelling, traumatic deformed L proximal tibialis, gait abnormality, and pain. Pt is deemed an appropriate candidate to receive skilled PT services to address their physical impairments in order to improve their functional ability. Frequency and Duration: The patient will be seen 2 x/ wk x 5 wks. Short Term Goals: initiate home program. Improve baseline pain to < 5/10; initial: 7/10. Chcf Goals: I with home program. Pt will be able to descend 1 fl of stairs Pt will improve LEFI outcome by at least 9 points. Pt will improve L ankle EV strength by at least 1/2 MMT grade. Pt will be able to walk 2 blocks with at most a little bit of difficulty. Treatment Plan: Modalities to reduce pain, spasms and effusion. Manual therapy to restore motion and function. Therapeutic exercise to improve strength and flexibility. Neuromuscular re-education for posture and balance. Therapeutic activities to return to functional activities of daily living. Electronically signed by: Luis Daniel Adames PT. Please sign and return to therapist. Thank you for your referral.
--- NOTE | 2024-08-02 10:46 | MHC.PT.DC ---
[facility] [place] Office [place] Office [place] Office [address] José Miguel Zuniga [address] [phone] F: [phone] F: [phone] F: [phone] F: [phone] Physical Therapy Discharge Report Diagnosis: L ankle sprain, achilies tear, tibial neuropathy. Date of Surgery: Date of Evaluation: 06/14/24 Date of Discharge: 08/02/24 Treatments to Date: 6 Cancellations to Date: 1 No Shows to Date: 3 Discharge Status: Improved Function Independent with HEP Patient Elected to Stop Discharge Summary: Although he was approved to continue his plan of care Shant has not returned to therapy since his re-evaluation and has logged 3 no-snow appointments since. His re-evaluation assessment is below. Shant has been an active and motivated participant in his therapy in the clinic and with home program. 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 He is recommended to continue skilled PT services 2 x / wk x 2 wks (4 total additional visits) in order to continue to progress towards his goals and functional recovery Objective findings: -Decreased light touch sensation L compared to R for anterior lateral L lower leg. -LEFI outcome measure by 6 points. -Stairs: Able to perform with reciprocal fashion, minimal handrail use and with decreased compensation though continues to report some pain. -GT: mild decreased L terminal stance. -L ankle: AROM: EV: 14 deg, 4+/5 mild pain with MMT. -IV: 25 deg, 4+/5 painful MMT. -PF: 45 deg, MMT 4/5 painful with SLS heel raise Electronically signed by: Luis Daniel Adames PT Please sign and return to therapist. Thank you for your referral.
== END 2024-08-02 10:42 | disposition home or self-care (01) ==
LOC: HO.PT 10:00
PROVIDERS: PCP Nurse Practitioner Family; Visit Provider Physician Assistant
DX: S93.402D Sprain of unspecified ligament of left ankle, subsequent encounter (principal); S86.012D Strain of left Achilles tendon, subsequent encounter; G57.82 Other specified mononeuropathies of left lower limb
CPT/HCPCS: 97110; 97112; 97140; 97161; 97164

== ENCOUNTER 2024-07-21 10:15 | Outpatient (AMB) | payer OTHER, SELFPAY ==
--- NOTE | 2024-07-21 10:16 | A.OFFVIS_ITS ---
Vital Signs 07/21/24 10:19 Height 5 ft 5 in Weight 190 lb BMI 31.6 BP 153/84 H Blood Pressure Location Lt brachial Position Sitting Pulse 69 Pulse Source Pulse Oximeter Pulse Oximetry (%) 98 Oxygen Delivery Method Room Air Intake Visit Reasons: s/p Right L2-L3 TFESI Intake Note: Pain today 07/30 Division Order Analyst Required: No Accompanied by: Self / Same As Patient Allergies No Known Allergies Allergy (Verified 07/21/24 10:20) HPI Comments Details: Patient presents today to assess response to Right L2-L3 TFESI injection on 06/23/[address] Fung. Patient reports ongoing 80% pain relief for right hip pain with partial imp rovement in his daily activities and functioning. He now reports his low back pain has not been relieved with injection and has been ongoing with certain movements such as prolonged standing, leaning backwards and is severe upon awaking in the mornings. His low back pain temporary eases with hot shower and medications. The patient continues to use Tylenol, gabapentin, and ibuprofen, though there have been issues with accessing Lidocaine patches. He actively avoids surgical interventions but is interested to undergo diagnostic lumbar medial branch blocks to address axial low back pain. The pa issa maintains his employment, indicating the need for effective pain management strategies to support daily activities and occupational responsibilities. - Affect: Pain impacts daily activities but not explicitly discussed regarding mood or psychological wellbeing. - Analgesia: Current regimen includes Tylenol, gabapentin, and ibuprofen. Pain currently 5/10, with goal to maintain within a more manageable range. - Adverse Effects: Patient did not report specific adverse effects. - Activities of Daily Living: Pain interferes with mobility and tasks but allows occupational participation. - Aberrant Drug Related Behaviors: None reported. Past Procedures: 06/23/24: Right L2-L3 TFESI-80% ongoing pain relief PRIOR: Patient is a 48 years old male presents today for initial evaluation of low back pain with with disc herniation. This is a Worker's Comp case #[id number] DOI: 01/07/24. Patient reports he fell off 12 feet down from a roof in December,. He suffered a back injury and left lower extremity injury. He is seeing Orthopedics for left ankle pain and states his hematoma of left lower extremity has been reabsorbed but continues with numbness and tingling. His back pain is axial and also discogenic with intermittent radiation into right hip and anterior thigh. Seated and supine SLR testing is negative bilaterally. Patient is currently in physical therapy with partial improvement in his pain and has not reached his maximum medical improvement and is interested to undergo therapeutic back injection. Back pain is function limiting and has been res istant to conservative treatments including PT, medications, heat, and activity modifications. He was referred to our office by [facility] [employer]. Patient has been back to work since injury on light duty. Denies any fever or chills, abdominal or groin pain, weakness, foot drop, bladder or bowel dysfunction or saddle anesthesia. Oswestry Low Back Disability Score=19 (moderate disability) Onset: 01/07/24 Location: Mid to lower back pain Duration: 5 months Characteristics of symptom or complaint: Sharp, cutting, shooting, cramping, burning, stabbing, tight, sore, heavy Aggravating or associated factors: Prolonged sitting or standing, lifting, bending, twisting, pulling Relieving factors: Heat, rest, Tylenol, NSAIDs, gabapentin prn, activity modications Treatment: PT, home exercise program, light duty at work, lumbar spine MRI [facility] Medical History Mild anemia Hypercholesterolemia Family History Father Alcohol abuse Diabetes Leukemia Social History Housing: House Alcohol intake: current Alcohol intake frequency: holidays/special occasions only Patient Tobacco Use Status: Former Tobacco user e-Cigarette/Vaping Use: Never Used service: No Current occupational status: employed 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 Alert and oriented. Mood and affect appropriate. Follows and participates in conversation appropriately. Respiratory effort is unlabored. No cough. Able to transition from sit to stand unassisted. Ambulates with right normal heel strike and toe off, pain on the left with heel or toe standing due to left ankle pain. General: Yes no CVA tenderness Back/Spine/Pelvis Other: Limited lumbar ROM due to pain. Painful facet loading bilaterally. Demonstrates 5/5 left and 4/5 right strength of quadriceps bilaterally as well as 5/5 flexion/dorsiflexion of bilateral feet against resistance. 2+ pedal pulses bilaterally. Straight leg rise with dorsiflexion negative bilaterally. +2 patellar and Achilles reflexes bilaterally. Yocasta sign, Jonah?s, Pelvic compression and Stinchfield tests are negative bilaterally. No groin pain with I/E hip rotations. Valsalva maneuver negative. Back: no CVA tenderness Cervical Spine: cervical ROM normal, cervical muscular tenderness and No Cervical spine tenderness Thoracic/Lumbar Spine: thoracic and lumbar spine normal to inspection, No Thoracic/lumbar spine scar(s), Lasegue's sign negative, straight leg raise negative bilaterally, pain with thoraco-lumbar ROM, paraspinal muscle tenderness, thoraco-lumbar ROM limited, No thoracic spinal tenderness and lumbar spinal tenderness (L4-S1) Pelvis: no buttock tenderness Sacroiliac joints: bilaterally nontender Results Reviewed Results Reviewed: MR LUMBAR SPINE WITHOUT CONTRAST 04/23/24 CLINICAL INFORMATION: Low back pain. Left lower extremity weakness and numbness and pain. COMPARISON: None available. TECHNIQUE: MRI of the lumbar spine was obtained using routine sequences without contrast. FINDINGS: Last rib-bearing vertebra labeled T12. No bone marrow STIR signal abnormality. Multilevel disc desiccation and marginal osteophyte formation more conspicuous at T11-12, L2-3, L3-4 and L4-5 levels. Grade 1 retrolisthesis, L2-3 and L3-4 levels. Conus medullaris ends at superior endplate of L1 with normal signal. T12-L1: No disc herniation. No neuroforamina stenosis. L1-2: No disc herniation. No neuroforamina stenosis. L2-3: There is a broad-based right foraminal and extraforaminal disc herniation resulting in right neuroforamina and stenosis encroaching the exiting nerve root, L2. No gross central spinal canal stenosis. L3-4: Bilateral facet joint and ligamentum flavum hypertrophy. Facet effusion, bilaterally. No gross central spinal canal stenosis. Bilateral neuroforamina narrowing. L4-5: Broad-based disc bulging. Facet joint hypertrophy. Reduced AP diameter of the thecal sac. Bilateral neuroforamina narrowing. No compression upon neural elements. L5-S1: Broad-based disc bulging. Facet joint hypertrophy. No compression upon neural elements. No prevertebral compartment hematoma, mass or fluid collection. Hyperintense T2 cystic lesions in the kidneys. IMPRESSION: Multilevel spondylosis more conspicuous at L2-3 and L4-5. Right foraminal and extraforaminal broad-based disc herniation, L2-3 likely encroaching the right L2 exiting nerve root. CT HEAD WITHOUT CONTRAST CT CERVICAL SPINE WITHOUT CONTRAST 01/07/24 CLINICAL INFORMATION: Fall 10-15 feet. Pain. COMPARISON: None available. TECHNIQUE: Contiguous axial imaging was performed from the skull base to vertex without intravenous administration of contrast. Contiguous axial imaging was performed from the upper chest through the skull base without intravenous administration of contrast. Coronal and sagittal reformats were obtained at the acquisition workstation. This CT examination was performed using dose optimization techniques as appropriate, variously including the following: *Automated exposure control. *Adjustment of mA and/or kV according to patient size (this includes techniques or standardized protocols for targeted exams where dose is matched to indication/reason for exam; i.e. extremities or head). *Use of iterative reconstruction technique. DLP: 1250 mGy-cm FINDINGS: Head: There is no evidence of acute intracranial hemorrhage or edematous territorial infarction. Owen-white matter differentiation is preserved. There is no abnormal attenuation within the brain parenchyma. The ventricles are normal in morphology and size. No evidence for obstructive hydrocephalus. No abnormal mass effect or midline shift. No extra-axial fluid collections. No acute soft tissue or osseous abnormalities. Mild mucosal thickening of the paranasal sinuses. The mastoid air cells and middle ear cavities are clear. Cervical Spine: The atlantooccipital and atlantoaxial articulations remain well aligned. Straightening of the normal cervical lordosis. Otherwise, there is anatomic alignment of the vertebral bodies and posterior elements. Congenital nonunion of the posterior arch of C1. No evidence of acute fracture or subluxation. The vertebral body heights are maintained. Moderate degenerative disc disease from C4-C6. Mild degenerative disc disease at all additional levels. Facet and uncovertebral joint arthropathy leads to osseous encroachment on the neural foramina from C3-C6. There is no prevertebral soft tissue swelling. The thyroid gland and remaining cervical soft tissues are within normal limits. The lung apices demonstrate no abnormalities. IMPRESSION: 1. No evidence of acute intracranial hemorrhage or edematous territorial infarction. 2. No evidence of acute fracture or traumatic subluxation of the cervical spine. 3. Moderate multilevel degenerative spondyloarthropathy of the cervical spine. CT abdomen pelvis w IV con 01/07/24 IMPRESSION: OSSEOUS STRUCTURES Minimal diffuse degenerative changes of the spine. Assessment & Plan Assessment & Plan (1) Lumbar back pain with radiculopathy affecting right lower extremity: Code(s): M54.16 - Radiculopathy, lumbar region Category: Medical (2) Lumbar spondylosis: Code(s): M47.816 - Spondylosis without myelopathy or radiculopathy, lumbar region Category: Medical (3) Lumbar disc herniation: Code(s): M51.26 - Other intervertebral disc displacement, lumbar region Category: Medical Plan Patient is one month status post right L2-L3 TFESI with good relief in his right hip and leg symptoms with partial improvement in his daily activities and functioning. To address axial low back pain, we will proceed with Bilateral Diagnostic L3-L4 DR L5 MBB with local, oral Ativan and fluoroscopy. Expectations, risks and benefits were reviewed. Patient is aware he will be contacted to schedule this procedure. Pain management will continue Tylenol, Ibuprofen, gabapentin along with addressing issues accessing Lidocaine patches. Non-pharmacological methods like heat therapy will also be incorporated to optimize pain relief and maintain functionality. All questions and concerns have been answered and patient agreed with the plan. Follow up after injections and sooner as needed. Patient was informed and verbally consented to the use of an ambient scribe for clinic note documentation during this visit. Medications: Refilled lidocaine 5% leave on most painful area for up to 12 hrs topical 30 days 30 ea 6RF pain M47.816 - Spondylosis without myelopathy or radiculopathy, lumbar region, M54.16 - Radiculopathy, lumbar region Patient Instructions: - Await call from our office to schedule diagnostic lumbar medial branch blocks, pending insurance approval. - Continue taking Tylenol, gabapentin, and ibuprofen as needed. - Use hot showers for pain relief particularly in the morning. - Monitor daily activities and adjust as appropriate to avoid exacerbating back pain. - Follow up on accessing Lidocaine patches prescriptions. - Contact us if pain significantly worsens or if there are issues with current medication regimen. Coding Level of Care Code Est Pt Level 4 (27056) Complex EM visit Add On G2211 Diagnoses Lumbar back pain with radiculopathy affecting right lower extremity M54.16 Lumbar spondylosis M47.816 Lumbar disc herniation M51.26
[2024-07-21 10:19] VITALS: BP 153/84; PULSE 69; O2SAT 98; BMI 31.6
== END 2024-07-21 10:44 | disposition home or self-care (01) ==
LOC: HO.PMC 10:16
PROVIDERS: PCP Nurse Practitioner Family; Visit Provider Nurse Practitioner Family
DX: M54.16 Radiculopathy, lumbar region (principal); M47.816 Spondylosis without myelopathy or radiculopathy, lumbar region; M51.26 Other intervertebral disc displacement, lumbar region
CPT/HCPCS: 99214; G2211

== ENCOUNTER → 2024-07-21 10:15 | Outpatient (BNVA) | payer OTHER, SELFPAY | PROVIDERS: PCP Nurse Practitioner Family; Visit Provider Nurse Practitioner Family | DX: M47.26 Other spondylosis with radiculopathy, lumbar region (principal); M51.26 Other intervertebral disc displacement, lumbar region | CPT/HCPCS: 99212 ==

== ENCOUNTER → 2024-08-03 09:59 | Outpatient (BNVA) | payer OTHER, SELFPAY | PROVIDERS: PCP Nurse Practitioner Family; Visit Provider Physician Assistant | DX: S86.012D Strain of left Achilles tendon, subsequent encounter (principal); S84.92XD Injury of unspecified nerve at lower leg level, left leg, subsequent encounter; W11.XXXD Fall on and from ladder, subsequent encounter; M76.62 Achilles tendinitis, left leg; M54.50 Low back pain, unspecified | CPT/HCPCS: 99214 ==

== ENCOUNTER 2024-08-10 07:33 | Outpatient (REF) | payer OTHER, SELFPAY ==
[2024-08-10 11:16] LABS: Hematocrit 42.2 % (42.0-52.0); Hemoglobin 13.7 g/dl (14.0-18.0); Mean Corpuscular HGB Conc 32.5 g/dl (31.0-36.0); Mean Corpuscular Volume 92.5 fL (80.0-98.0); Mean Platelet Volume 9.3 fL (9.4-12.4); Platelet Count 274 X10*3/uL (160-400); Red Blood Count 4.56 X10*6/uL (4.60-5.80); Red Cell Distribution Width 12.4 % (11.0-16.0); White Blood Count 5.6 X10*3/uL (4.8-10.8)
[2024-08-10 11:33] LABS: Cholesterol 213 mg/dL (<200); HDL Cholesterol 48 mg/dL (>40); LDL Cholesterol Calculated 135 mg/dL (<100); Triglycerides 152 mg/dL (<150)
== END 2024-08-10 07:34 | disposition home or self-care (01) ==
LOC: HO.WFDLDS 07:33
PROVIDERS: Referring Provider Physician Assistant Medical; Visit Provider Nurse Practitioner Family
DX: S80.10XA Contusion of unspecified lower leg, initial encounter (principal); E78.5 Hyperlipidemia, unspecified; X58.XXXA Exposure to other specified factors, initial encounter; Y93.9 Activity, unspecified; Y92.9 Unspecified place or not applicable; Y99.9 Unspecified external cause status
CPT/HCPCS: 36415; 80061; 85027

== ENCOUNTER 2024-08-12 13:57 | Outpatient (AMB) | payer OTHER, SELFPAY ==
--- NOTE | 2024-08-12 13:46 | A.OFFPC_ITS ---
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 He admits to making healthy lifestyle changes. He offers no complaints and denies acute symptoms at this time. 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 Remberto Novoa, Sugey Arroyo, Silverio Abdalla and colleagues, with an educational sylvia from [employer]. Review of Systems Const Details: Denies chills, Denies fatigue, Denies fever(s), Denies headache(s) and Denies weakness Cardiac Denies chest pain, Denies claudication, Denies leg edema, Denies lightheadedness, Denies palpitations, Denies dyspnea, Denies dyspnea on exertion, Denies orthopnea and Denies other (Loss of consciousness) Resp Denies cough, Denies excessive phlegm production, Denies dyspnea, Denies dyspnea on exertion, Denies snoring and Denies wheezing Physical exam (Primary Care) Tobacco/Smoking Status: Tobacco use Status Tobacco use date assessed 08/12/24 08/12/24 13:47 Patient Tobacco Use Status Former Tobacco user 08/12/24 13:47 e-Cigarette/Vaping Use Never Used 08/12/24 13:47 Thrive Assessment: Date of Thrive Assessment Date Thrive assessed 05/13/24 08/12/24 13:47 Const Other: Patient is alert oriented x3 Telehealth Telehealth Telehealth Platform: Telephone Location of provider rendering services: practice address Location of patient: address on file Patient Identification confirmed using: Name, : Yes Telehealth method: voice only Patient verbally consented to treatment: Yes Patient verbally consented to billing insurance company: Yes Patient informed of any privacy concerns related to visit: Yes Coding Level of Care Code Tele Est Pt Level 3 (07347) Diagnoses Hyperlipidemia E78.5 Time Spent (min) 10 Assessment & Plan Assessment & Plan (1) Hyperlipidemia: Code(s): E78.5 - Hyperlipidemia, unspecified Category: Medical Plan: Recent triglyceride is slightly elevated, 152 from 211, total cholesterol slightly elevated, 200 from 213, LDL slightly elevated, 135 from 114, HDL is normal, 48. He wishes to continue with lifestyle changes versus medication treatment at this time. Advised to limit foods high in saturated fat and avoid foods high in trans fat. Routine exercise encouraged. Fast for 10-12 hours, may drink water, and performed lipid panel blood work 2-3 days before next visit. Follow-up for a telehealth visit in 3 months. Return sooner with symptoms or concerns. Verbalized understanding and agreed with the treatment plan. Orders: Orders Lipid Panel 3 Months E78.5 - Hyperlipidemia, unspecified
== END 2024-08-12 14:47 | disposition home or self-care (01) ==
LOC: HO.HMCFM 13:57
PROVIDERS: PCP Nurse Practitioner Family; Visit Provider Nurse Practitioner Family
DX: E78.5 Hyperlipidemia, unspecified (principal)

== ENCOUNTER → 2024-08-12 13:57 | Outpatient (BNVA) | payer OTHER, SELFPAY | PROVIDERS: PCP Nurse Practitioner Family; Visit Provider Nurse Practitioner Family | DX: Z71.2 Person consulting for explanation of examination or test findings (principal); E78.5 Hyperlipidemia, unspecified | CPT/HCPCS: 98966 ==

== ENCOUNTER → 2024-08-24 13:23 | Outpatient (BNVA) | payer OTHER, SELFPAY | PROVIDERS: PCP Nurse Practitioner Family; Visit Provider Physician Assistant | DX: S86.012D Strain of left Achilles tendon, subsequent encounter (principal); W11.XXXD Fall on and from ladder, subsequent encounter; G57.92 Unspecified mononeuropathy of left lower limb; M54.50 Low back pain, unspecified | CPT/HCPCS: 99213 ==

== ENCOUNTER 2024-10-06 06:24 | Outpatient (REF) | payer OTHER, SELFPAY ==
--- NOTE | ~2024-10-06 | FL_ITS ---
EXAMINATION: FL GUIDANCE ONLY HISTORY: M47.816 - Spondylosis without myelopathy or radiculopathy, lumbar region COMPARISON: None available. TECHNIQUE: Fluoroscopy time: 0.2 minutes. Cumulative Dose: 2.56 mGy. DAP: 0.0250 mGym2 Images: 2. FINDINGS: Fluoroscopic spot films of the lumbar spine demonstrate needles and contrast material in the regions of the bilateral L3-4, L4-5, and L5-S1 facet joints. FL/FL guidance in treatment room IMPRESSION: Fluoroscopy during procedure. Please see procedure report for additional information. Electronically signed by: Remberto Patton MD 10/06/2024 02:47 PM EDT
== END 2024-10-06 06:25 | disposition home or self-care (01) ==
LOC: CF 06:24
PROVIDERS: Visit Provider Internal Medicine
DX: M47.816 Spondylosis without myelopathy or radiculopathy, lumbar region (principal)
CPT/HCPCS: 64493; 64494; J2003; J2795; Q9967

== ENCOUNTER 2024-10-06 13:46 | Outpatient (AMB) | payer OTHER, SELFPAY ==
[2024-10-06 13:51] VITALS: BP 131/94; PULSE 75; RESP 16; O2SAT 96; BMI 31.6
--- NOTE | 2024-10-06 13:51 | MHC.OFFVIS ---
Vital Signs 10/06/24 13:51 10/06/24 14:14 Height 5 ft 5 in 5 ft 5 in Weight 190 lb 190 lb BMI 31.6 31.6 BP 131/94 H 124/82 Blood Pressure Location Lt brachial Lt brachial Position Sitting Sitting Respiration 16 16 Pulse 75 74 Pulse Source Pulse Oximeter Pulse Oximeter Pulse Oximetry (%) 96 99 Oxygen Delivery Method Room Air Room Air Intake Visit Reasons: Lorenzo Dx L3-L4-DR-L5 MBB Allergies No Known Allergies Allergy (Verified 08/12/24 13:46) HPI HPI Lorenzo Dx L3-L4-DR-L5 MBB: Details: Patient presents for scheduled procedure. Denies any recent cough, cold, infection, fever or other significant changes in medical history since last office visit. 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 The patient was placed in a prone position. The respective lumbosacral area was prepped with chloraprep and draped in sterile fashion. The skin over the target medial branch nerves was anesthetized with 0.5% lidocaine. A 22 gauge 3.5 inch needle was inserted into the target medial branch nerve under fluoroscopic guidance. No paresthesias were elicited with needle placement and aspiration was negative for blood and CSF. Next, 0.2cc of omnipaque 180 was injected to verify positioning in AP and oblique imaging. Next 0.5 ml 0.5% ropivicaine was injected (0.5cc total per level). The identical procedure was performed at the remaining levels. The skin was cleansed and a sterile bandage was applied. Following the procedure the patient's vital signs were stable. The patient tolerated the procedure well and no complications were encountered. Following the procedure the patient's vital signs were stable. The patient was discharged home in good condition with post-procedural instructions. Time Out: Immediately prior to the procedure, the following was verbally confirmed that there is a signed consent form and that the correct patient, planned procedure, site and side are consistent with documentation and that necessary equipment and/or blood products are available prior to the start of the case. Complications: none EBL: <5 cc 60347 - with Fluoroscopy (L3-L4) 69142 - second level with Fluoroscopy (L3-L4-L5) Procedure code (CPT) selection complete Assessment & Plan Assessment & Plan (1) Lumbar spondylosis: Code(s): M47.816 - Spondylosis without myelopathy or radiculopathy, lumbar region Category: Medical Plan Patient is status post bilateral lumbar MBBs. Patient tolerated procedure well and was discharged home in stable condition with discharge instructions. All questions were answered. We will follow-up via telephone or in clinic to assess response to therapy. A follow-up appointment was made during today's visit. Orders: Orders FL guidance in treatment room Today Ivis Alexander APRN, SURVIVAL SPECIALIST M47.816 - Spondylosis without myelopathy or radiculopathy, lumbar region AMB Medial Branch Block - Lumbar/Sacral Today Alen Fung MD M47.816 - Spondylosis without myelopathy or radiculopathy, lumbar region Coding Level of Care Code Procedure Only Diagnoses Lumbar spondylosis M47.816 CPT Codes Medial Branch Block Lumbar/Sacral1 - Branch Block Lumb/Sac 1: 64325 - with Fluoroscopy (L3-L4) ([id number]) Medial Branch Block Lumbar/Sacral1 - Branch Block Lumb/Sac 2: 75272 - second level with Fluoroscopy (L3-L4-L5) ([id number])
[2024-10-06 14:14] VITALS: BP 124/82; PULSE 74; RESP 16; O2SAT 99; BMI 31.6
== END 2024-10-06 14:17 | disposition home or self-care (01) ==
LOC: HO.PMCPRC 13:46
PROVIDERS: PCP Nurse Practitioner Family; Visit Provider Internal Medicine
DX: M47.816 Spondylosis without myelopathy or radiculopathy, lumbar region (principal)
CPT/HCPCS: 64493; 64494

== ENCOUNTER 2024-10-20 08:56 | Outpatient (AMB) | payer OTHER, SELFPAY ==
--- NOTE | 2024-10-20 09:01 | A.OFFVIS_ITS ---
Vital Signs 10/20/24 09:05 Height 5 ft 5 in Weight 188 lb BMI 31.3 BP 139/88 Blood Pressure Location Rt brachial Position Sitting Pulse 74 Pulse Source Pulse Oximeter Pulse Oximetry (%) 100 Oxygen Delivery Method Room Air Intake Visit Reasons: s/p martha Dx L3-L4-DR-L5 MBB Intake Note: Pain today 4/10 Trimming Operator Required: No Accompanied by: Self / Same As Patient Allergies No Known Allergies Allergy (Verified 10/20/24 09:06) HPI Comments Details: The patient is a 49-year-old male presenting with ongoing back pain and right leg pain. He underwent bilateral diagnostic L3-L4-L5 medial branch blocks on October 06, which were intended to provide temporary pain relief. However, the patient reported no significant pain relief following the procedure, with pain levels remaining at 4/10 on the day of the visit and increasing to 7/10 by the evening of the procedure. The patient describes the pain as persistent in the right side of low back with intermittent radiation into right thigh as prior to the injections, with no improvement noted. The pain is described as intermittent, with episodes of exacerbation and relief, but overall persistent. In June, the patient received an injection for pain radiating to the right leg, which provided some relief, and the leg pain is currently better managed. 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 The patient has been advised to monitor his pain and avoid activities that exacerbate it. If the leg pain worsens, a repeat of the June injection may be considered, and if ineffective, referral to a back surgeon will be necessary. Denies any recent cough, cold, infection, fever or any significant changes in medical history since last office visit. Past Procedures: 10/06/24: Bilateral Diagnostic L3-L4-DR L5 MBB-0% pain relief 06/23/24: Right L2-L3 TFESI-80% ongoing pain relief PRIOR: Patient is a 48 years old male presents today for initial evaluation of low back pain with with disc herniation. This is a Worker's Comp case #[id number] DOI: 01/07/24. Patient reports he fell off 12 feet down from a roof in December,. He suffered a back injury and left lower extremity injury. He is seeing Orthopedics for left ankle pain and states his hematoma of left lower extremity has been reabsorbed but continues with numbness and tingling. His back pain is axial and also discogenic with intermittent radiation into right hip and anterior thigh. Seated and supine SLR testing is negative bilaterally. Patient is currently in physical therapy with partial improvement in his pain and has not reached his maximum medical improvement and is interested to undergo therapeutic back injection. Back pain is function limiting and has been resistant to conservative treatments including PT, medications, heat, and activity modifications. He was referred to our office by [facility]. Patient has been back to work since injury on light duty. Denies any fever or chills, abdominal or groin pain, weakness, foot drop, bladder or bowel dysfunction or saddle anesthesia. Oswestry Low Back Disability Score=19 (moderate disability) Onset: 01/07/24 Location: Mid to lower back pain Duration: 5 months Characteristics of symptom or complaint: Sharp, cutting, shooting, cramping, burning, stabbing, tight, sore, heavy Aggravating or associated factors: Prolonged sitting or standing, lifting, bending, twisting, pulling Relieving factors: Heat, rest, Tylenol, NSAIDs, gabapentin prn, activity modications Treatment: PT, home exercise program, light duty at work, lumbar spine MRI [facility] Medical History Mild anemia Hypercholesterolemia Family History Father Alcohol abuse Diabetes Leukemia Social History Housing: House Alcohol intake: current Alcohol intake frequency: holidays/special occasions only Patient Tobacco Use Status: Former Tobacco user e-Cigarette/Vaping Use: Never Used service: No Current occupational status: employed 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 Current occupational exposures/hazards: No Cognitive needs: No Hearing needs: No Vision needs: Yes Review of Systems Const Details: - Musculoskeletal: Reports persistent lumbar pain, intermittent, with episodes of exacerbation and relief - Neurological: Reports pain radiating to the right leg, currently better managed All systems reviewed & are unremarkable except as noted in HPI and below Physical Exam Vital Signs: Last Vital Signs Pulse 74 10/20/24 09:05 BP 139/88 10/20/24 09:05 Pulse Ox 100 10/20/24 09:05 Oxygen Delivery Method Room Air 10/20/24 09:05 BMI result Body Mass Index 31.3 General: Appears afebrile. Alert and oriented. Mood and affect appropriate. Follows and participates in conversation appropriately. Respiratory effort is unlabored. No cough. Able to transition from sit to stand unassisted. Ambulates with right normal heel strike and toe off, pain on the left with heel or toe standing due to left ankle pain. General: Yes no CVA tenderness Back/Spine/Pelvis Back: no CVA tenderness Cervical Spine: cervical ROM normal, cervical muscular tenderness and No Cervical spine tenderness Thoracic/Lumbar Spine: thoracic and lumbar spine normal to inspection, No Thoracic/lumbar spine scar(s), Lasegue's sign negative, straight leg raise negative bilaterally, pain with thoraco-lumbar ROM (mild), paraspinal muscle tenderness, thoraco-lumbar ROM limited, No thoracic spinal tenderness and No lumbar spinal tenderness Pelvis: no buttock tenderness Sacroiliac joints: bilaterally nontender Extrem General: Yes capillary refill normal, Yes no clubbing, cyanosis or edema and Yes no calf tenderness Results Reviewed Results Reviewed: MR LUMBAR SPINE WITHOUT CONTRAST 04/23/24 CLINICAL INFORMATION: Low back pain. Left lower extremity weakness and numbness and pain. COMPARISON: None available. TECHNIQUE: MRI of the lumbar spine was obtained using routine sequences without contrast. FINDINGS: Last rib-bearing vertebra labeled T12. No bone marrow STIR signal abnormality. Multilevel disc desiccation and marginal osteophyte formation more conspicuous at T11-12, L2-3, L3-4 and L4-5 levels. Grade 1 retrolisthesis, L2-3 and L3-4 levels. Conus medullaris ends at superior endplate of L1 with normal signal. T12-L1: No disc herniation. No neuroforamina stenosis. L1-2: No disc herniation. No neuroforamina stenosis. L2-3: There is a broad-based right foraminal and extraforaminal disc herniation resulting in right neuroforamina and stenosis encroaching the exiting nerve root, L2. No gross central spinal canal stenosis. L3-4: Bilateral facet joint and ligamentum flavum hypertrophy. Facet effusion, bilaterally. No gross central spinal canal stenosis. Bilateral neuroforamina narrowing. L4-5: Broad-based disc bulging. Facet joint hypertrophy. Reduced AP diameter of the thecal sac. Bilateral neuroforamina narrowing. No compression upon neural elements. L5-S1: Broad-based disc bulging. Facet joint hypertrophy. No compression upon neural elements. No prevertebral compartment hematoma, mass or fluid collection. Hyperintense T2 cystic lesions in the kidneys. IMPRESSION: Multilevel spondylosis more conspicuous at L2-3 and L4-5. Right foraminal and extraforaminal broad-based disc herniation, L2-3 likely encroaching the right L2 exiting nerve root. CT HEAD WITHOUT CONTRAST CT CERVICAL SPINE WITHOUT CONTRAST 01/07/24 CLINICAL INFORMATION: Fall 10-15 feet. Pain. COMPARISON: None available. TECHNIQUE: Contiguous axial imaging was performed from the skull base to vertex without intravenous administration of contrast. Contiguous axial imaging was performed from the upper chest through the skull base without intravenous administration of contrast. Coronal and sagittal reformats were obtained at the acquisition workstation. This CT examination was performed using dose optimization techniques as appropriate, variously including the following: *Automated exposure control. *Adjustment of mA and/or kV according to patient size (this includes techniques or standardized protocols for targeted exams where dose is matched to indication/reason for exam; i.e. extremities or head). *Use of iterative reconstruction technique. DLP: 1250 mGy-cm FINDINGS: Head: There is no evidence of acute intracranial hemorrhage or edematous territorial infarction. Owen-white matter differentiation is preserved. There is no abnormal attenuation within the brain parenchyma. The ventricles are normal in morphology and size. No evidence for obstructive hydrocephalus. No abnormal mass effect or midline shift. No extra-axial fluid collections. No acute soft tissue or osseous abnormalities. Mild mucosal thickening of the paranasal sinuses. The mastoid air cells and middle ear cavities are clear. Cervical Spine: The atlantooccipital and atlantoaxial articulations remain well aligned. Straightening of the normal cervical lordosis. Otherwise, there is anatomic alignment of the vertebral bodies and posterior elements. Congenital nonunion of the posterior arch of C1. No evidence of acute fracture or subluxation. The vertebral body heights are maintained. Moderate degenerative disc disease from C4-C6. Mild degenerative disc disease at all additional levels. Facet and uncovertebral joint arthropathy leads to osseous encroachment on the neural foramina from C3-C6. There is no prevertebral soft tissue swelling. The thyroid gland and remaining cervical soft tissues are within normal limits. The lung apices demonstrate no abnormalities. IMPRESSION: 1. No evidence of acute intracranial hemorrhage or edematous territorial infarction. 2. No evidence of acute fracture or traumatic subluxation of the cervical spine. 3. Moderate multilevel degenerative spondyloarthropathy of the cervical spine. CT abdomen pelvis w IV con 01/07/24 IMPRESSION: OSSEOUS STRUCTURES Minimal diffuse degenerative changes of the spine. Assessment & Plan Assessment & Plan (1) Lumbar back pain with radiculopathy affecting right lower extremity: Code(s): M54.16 - Radiculopathy, lumbar region Category: Medical (2) Lumbar spondylosis: Code(s): M47.816 - Spondylosis without myelopathy or radiculopathy, lumbar region Category: Medical (3) Lumbar disc herniation: Code(s): M51.26 - Other intervertebral disc displacement, lumbar region Category: Medical (4) Muscle spasm of back: Code(s): M62.830 - Muscle spasm of back Category: Medical Plan The patient will continue to monitor his pain levels and avoid activities that exacerbate his symptoms. If the right leg pain worsens, a repeat of the injection performed in June may be considered. Should this intervention prove ineffective, a referral to a Neurosurgeon might be necessary for further evaluation and management. Pain management will continue Tylenol, Ibuprofen, gabapentin, and heat therapy. He reports insurance denies coverage for Lidocaine patches and methocarbamol. The patient is advised to follow up as needed and to contact the clinic if his pain worsens or if he requires further intervention. Patient was informed and verbally consented to the use of an ambient scribe for clinic note documentation during this visit. Medications: Discontinued methocarbamol Discontinued Reason: Insurance Denied 750 mg PO BID 30 days PRN 60 tabs 0RF muscle spasms M54.16 - Radiculopathy, lumbar region, M62.830 - Muscle spasm of back lidocaine 5% Discontinued Reason: Insurance Denied leave on most painful area for up to 12 hrs topical 30 days 30 ea 6RF pain M47.816 - Spondylosis without myelopathy or radiculopathy, lumbar region, M54.16 - Radiculopathy, lumbar region Patient Instructions: - Monitor your pain levels and avoid activities that make it worse. - If your back with right leg pain worsens, consider contacting us for a repeat injection. - Follow up as needed and contact us if your symptoms change or if you need further intervention. Coding Level of Care Code Est Pt Level 3 (94329) Complex EM visit Add On G2211 Diagnoses Lumbar back pain with radiculopathy affecting right lower extremity M54.16 Lumbar spondylosis M47.816 Lumbar disc herniation M51.26 Muscle spasm of back M62.830
[2024-10-20 09:05] VITALS: BP 139/88; PULSE 74; O2SAT 100; BMI 31.3
== END 2024-10-20 09:14 | disposition home or self-care (01) ==
LOC: HO.PMC 08:56
PROVIDERS: PCP Nurse Practitioner Family; Visit Provider Nurse Practitioner Family
DX: M54.16 Radiculopathy, lumbar region (principal); M47.816 Spondylosis without myelopathy or radiculopathy, lumbar region; M51.26 Other intervertebral disc displacement, lumbar region; M62.830 Muscle spasm of back
CPT/HCPCS: 99213; G2211

== ENCOUNTER → 2024-10-20 08:56 | Outpatient (BNVA) | payer OTHER, SELFPAY | PROVIDERS: PCP Nurse Practitioner Family; Visit Provider Nurse Practitioner Family | DX: M51.26 Other intervertebral disc displacement, lumbar region (principal); M54.16 Radiculopathy, lumbar region; M47.816 Spondylosis without myelopathy or radiculopathy, lumbar region; M62.830 Muscle spasm of back; Z91.81 History of falling; Z04.2 Encounter for examination and observation following work accident | CPT/HCPCS: 99212 ==

== ENCOUNTER → 2024-10-28 10:17 | Outpatient (BNVA) | payer OTHER, SELFPAY | PROVIDERS: PCP Nurse Practitioner Family; Visit Provider Physician Assistant | DX: S86.012D Strain of left Achilles tendon, subsequent encounter (principal); W11.XXXD Fall on and from ladder, subsequent encounter; G57.92 Unspecified mononeuropathy of left lower limb | CPT/HCPCS: 99213 ==

== ENCOUNTER 2024-11-11 08:36 | Outpatient (REF) | payer OTHER, SELFPAY ==
[2024-11-11 11:55] LABS: Cholesterol 215 mg/dL (<200); HDL Cholesterol 49 mg/dL (>40); Triglycerides 137 mg/dL (<150)
== END 2024-11-11 08:37 | disposition home or self-care (01) ==
LOC: HO.WFDLDS 08:36
PROVIDERS: Visit Provider Nurse Practitioner Family
DX: E78.5 Hyperlipidemia, unspecified (principal)
CPT/HCPCS: 36415; 80061

== ENCOUNTER 2024-11-14 13:45 | Outpatient (AMB) | payer BC, SELFPAY ==
--- NOTE | 2024-11-14 13:16 | MHC.PC.OV ---
Intake Visit Reasons: Telehealht 3 mos HLD Intake Note: patient here for 3 month telehehealth follow for HLD Facilities Operations Technician Required: No Allergies No Known Allergies Allergy (Verified 11/14/24 13:16) Tobacco use date assessed: 11/14/24 Dental Screening Dental Screen Date: 11/14/24 Did you have a dental visit in the last 12 months?: Yes Did you have a dental problem in the last 6 months where you did not have access to dental care?: No Was dental information given to patient?: Patient has dentist HPI HPI Comments History of Present Illness Details 49-year-old male presents for telehealth visit for HLD follow up. He admits to making healthy lifestyle changes. He notes that he is having surgery of left ankle., d/t work related injury, with [employer] in 11/25/2024. No acute symptoms at this time. 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 Remberto Novoa, Sugey Arroyo, Silverio Abdalla and colleagues, with an educational sylvia from [employer]. Review of Systems Const Details: Denies chills, Denies fatigue, Denies fever(s), Denies headache(s) and Denies weakness Cardiac Denies chest pain, Denies claudication, Denies leg edema, Denies lightheadedness, Denies palpitations, Denies dyspnea, Denies dyspnea on exertion, Denies orthopnea and Denies other (Loss of consciousness) Resp Denies cough, Denies excessive phlegm production, Denies dyspnea, Denies dyspnea on exertion, Denies snoring and Denies wheezing Physical exam (Primary Care) Tobacco/Smoking Status: Tobacco use Status Tobacco use date assessed 11/14/24 11/14/24 13:18 Patient Tobacco Use Status Former Tobacco user 11/14/24 13:18 e-Cigarette/Vaping Use Never Used 11/14/24 13:18 Thrive Assessment: Date of Thrive Assessment Date Thrive assessed 05/13/24 11/14/24 13:18 Telehealth Telehealth Telehealth Platform: Telephone Location of provider rendering services: practice address Location of patient: address on file Patient Identification confirmed using: Name, : Yes Telehealth method: voice only Patient verbally consented to treatment: Yes Patient verbally consented to billing insurance company: Yes Patient informed of any privacy concerns related to visit: Yes Coding Level of Care Code Tele Est Pt Level 3 (75239) Diagnoses Hyperlipidemia E78.5 Time Spent (min) 15 Assessment & Plan Assessment & Plan (1) Hyperlipidemia: Code(s): E78.5 - Hyperlipidemia, unspecified Category: Medical Plan: Recent total cholesterol and LDL levels are elevated, 215 and 139 respectively. Previous levels were 213 and 135 respectively. Triglycerides and HDL levels are normal. He does not want to start antilipemic at this time and will continue to make healthy lifestyle choices. Advised to limit foods high in saturated fat and avoid foods high in trans fat. Routine exercise encouraged. Fast for 10-12 hours, may drink water, and perform lipid panel blood work 2-3 days before next visit. Follow-up for telehealth visit in 3 months. Return sooner with symptoms or concerns. Verbalized understanding and agreed with the plan. Orders: Orders Lipid Panel 3 Months E78.5 - Hyperlipidemia, unspecified
== END 2024-11-14 16:19 | disposition home or self-care (01) ==
LOC: HO.HMCFM 13:45
PROVIDERS: PCP Nurse Practitioner Family; Visit Provider Nurse Practitioner Family
DX: E78.5 Hyperlipidemia, unspecified (principal)